=== PATIENT | male | born 1950 | race Caucasian/White ===

== ENCOUNTER 2017-12-25 08:55 | Emergency (ER) | payer MEDICARE, SELFPAY ==
[2017-12-25 09:15] VITALS: BP 139/82; PULSE 73; RESP 20; TEMP 36.2; O2SAT 96; BMI 35.2
[2017-12-25 09:22] LABS: POC Glucose,Bedside 98 mg/dL (70-110)
[2017-12-25 09:25] VITALS: BP 142/93; PULSE 65; RESP 18; TEMP 36.4; O2SAT 95; BMI 35.2
--- NOTE | 2017-12-25 09:38 | CT_ITS ---
CT head/brain wo con Ordering Physician: Caitlin Romeo Patient Age: 67 years: Male HISTORY: ITS.REASON: dizziness and vomiting.. On 2 weeks. HISTORY of trauma to head TECHNIQUE: Axial routine CT head with brain and bone windows performed and submitted to PACS COMPARISON :No CT head studies. Only CT sinus study from 2009 available FINDINGS No acute intracranial findings. No hemorrhage. No mass lesion or mass effect. No subdural collection. Small physiologic calcification at medial aspect right basal ganglia noted.. Ventricles appear normal size. Posterior fossa unremarkable. CP angles clear. IACs symmetric. Middle ear clear. Mastoid air cells unremarkable. Minimal cerumen right external canal. Focal area of benign-appearing focal right frontal bone of skull is seen on axial image 26.. Possibly reflects sequela of old fracture. No prior axial CT studies here for comparison however I suspect this area was present on the CT sinus placement coordinator image from 2009. Supporting stable character A benign appearance Is there history of old skull fracture Paranasal sinuses. Partially imaged maxillary sinuses reveal Retention cyst floor left maxillary sinus measuring up to 18 mm AP. Scant mucosal thickening lateral wall inferior left maxillary sinus. Ethmoid sphenoid and frontal sinuses clear. Orbits unremarkable. IMPRESSION: 1. No acute intracranial findings. Brain within normal limits for age on this noncontrast CT 2. Benign-appearing Focal thinning of skull right frontal bone most likely stable feature since 2009 . (Although not seen on previous axial CT sinus images, I suspect this minor feature stable on the CT placement coordinator view of skull from 2009 vs today).. Nonspecific observation but could reflect site of old trauma if history of skull fracture here . 3. No acute paranasal sinus nor mastoid features. . Moderate size retention cyst floor left maxillary sinus as noted.
[2017-12-25 09:41] LABS: Basophils # 0.1 K/mm3 (0-0.2); Basophils % 0.6 % (0.1-2.0); Eosinophils # 0.4 K/mm3 (0.0-0.4); Eosinophils % 4.8 % (0.1-12.0); Hematocrit 43.3 % (42.0-52.0); Lymphocytes # 3.2 K/mm3 (0.7-4.5); Lymphocytes % 35.2 K/mm3 (10-50); Mean Corpuscular HGB Conc 34.7 g/dL (31.8-35.4); Mean Corpuscular Hemoglobin 30.8 pg (27.0-31.2); Mean Corpuscular Volume 88.7 fl (80-94); Mean Platelet Volume 9.1 fl (7.4-10.4); Monocytes # 0.7 K/mm3 (0.1-1.0); Monocytes % 7.2 % (1.7-9.3); Neutrophils # 4.8 K/mm3 (1.8-7.8); Neutrophils % 52.2 % (37.0-80.0); Platelet Count 180 K/mm3 (142-424); Red Blood Count 4.88 M/mm3 (4.60-6.20); Red Cell Distribution Width 12.8 % (11.5-17.5); White Blood Count 9.2 K/mm3 (4.8-10.8)
--- NOTE | 2017-12-25 09:43 | [facility].EDGENADL ---
ED Disposition Clinical Impression: CAD (coronary artery disease), COPD (chronic obstructive pulmonary disease), Retention cyst of nasal cavity, Acute labyrinthitis, Seasonal allergies Clinical Impression: (Ruled Out): Pre-syncope Disposition: Home, Self-Care Condition on Discharge: Fair Additional Instructions: 1- fall precautions. 2- start zyrtec and antivert. 3- see Dr Block for a retention cyst. 4- see Dr. Chacon in AM to discuss MRI and Carotid US. 5- to return for re evaluation if new sx arise. Prescriptions: Meclizine HCl [Antivert 25mg tablet] 25 mg PO Q8HP PRN #21 tab PRN Reason: Dizziness Cetirizine HCl [Zyrtec] 10 mg PO Q24H #15 cap Referrals: Georges Chacon MD [Primary Care Provider] - Bill Block MD [Staff Physician] - - Critical Care Critical Care Time: No Attestation: On 12/25/17, the high probability of a clinically significant, sudden or life threatening deterioration of the following system(s) required my full and direct attention, intervention and personal management. The time I documented below is in addition to time spent performing reported procedures but includes the following listed in this critical care notation. Medical Decision Making - Medical Records Medical records reviewed: Yes: I reviewed the patient's medical records. Vital Signs: 12/25/17 09:15 12/25/17 09:25 12/25/17 10:00 Temperature 97.2 F L 97.5 F L Temperature Source Temporal Artery Scan Temporal Artery Scan Pulse Rate [Orthostatic Lying Left Radial] 67 Pulse Rate [Orthostatic Sitting Right Radial] 68 Pulse Rate [Orthostatic Standing Right Radial] 75 Pulse Rate [Right] 73 65 Respiratory Rate 20 18 Blood Pressure [Orthostatic Lying Right Arm] 134/94 Blood Pressure [Orthostatic Sitting Right Arm] 140/89 Blood Pressure [Orthostatic Standing Right Arm] 131/89 Blood Pressure [Right Arm] 139/82 142/93 Blood Pressure Mean [Right Arm] 101 109 Blood Pressure Source [Right Arm] Automatic Cuff Automatic Cuff Blood Pressure Position [Right Arm] Sitting Supine 02 Sat by Pulse Oximetry 96 95 Oxygen Delivery Method Room Air Room Air - Lab Data Lab results reviewed: Yes: I reviewed the patient's lab results. Lab Results 12/25/17 09:15: POC Glucose 98 12/25/17 09:34: WBC 9.2, RBC 4.88, Hgb 15.0, Hct 43.3, MCV 88.7, MCH 30.8, MCHC 34.7, RDW 12.8, Plt Count 180, MPV 9.1, Neut % (Auto) 52.2, Lymph % (Auto) 35.2, [place] % (Auto) 7.2, Eos % (Auto) 4.8, Baso % (Auto) 0.6, Neut # (Auto) 4.8, Lymph # (Auto) 3.2, [place] # (Auto) 0.7, Eos # (Auto) 0.4, Baso # (Auto) 0.1 12/25/17 09:34: Sodium 141, Potassium 4.2, Chloride 107, Carbon Dioxide 27, Anion Gap 11.2, BUN 16, Creatinine 1.07, Estimated Creat Clear 94, Estimated GFR 69, Est GFR ( Amer) 84, Glucose 105, Calcium 8.5, Total Bilirubin 0.6, AST 24, ALT 59, Alkaline Phosphatase 116, Total Creatine Kinase 92, CK-MB (CK-2) 0.9, CK-MB (CK-2) Rel Index 1.0, Troponin I < 0.02, Total Protein 6.7, Albumin 3.8, Globulin 2.9, Albumin/Globulin Ratio 1.3 12/25/17 09:34: D-Dimer < 100 12/25/17 09:34: B-Natriuretic Peptide 27 12/25/17 09:38: Specimen Source L. radial, O2 % Room air, ABG pH 7.41, ABG pCO2 36.9, ABG pO2 86.9, ABG HCO3 22.7, ABG Total CO2 23.8, ABG O2 Saturation 97, ABG Base Excess -2.0, Goyo Test Acceptable 12/25/17 09:40: Stool Occult Blood Negative Result diagrams: 12/25/17 09:34 12/25/17 09:34 Orders (Tests/Meds): ED MEDICATIONS Discontinued Medications Generic Name Dose Route Start Last Admin Trade Name Freq PRN Reason Stop Dose Admin Sodium Chloride 1,000 mls @ 999 mls/hr 12/25/17 10:15 12/25/17 10:37 Sod Chlor 0.9% 1000ml Bag IV 12/25/17 11:15 999 mls/hr .Q1H1M KASSY Administration Meclizine HCl 25 mg 12/25/17 10:10 12/25/17 10:37 Antivert 25mg Tablet PO 12/25/17 10:11 25 mg ONCE ONE Administration - Radiology Data #1 Image(s): Chest - CT Data CT Scan: Head Time Received: 11:28
--- NOTE | 2017-12-25 09:46 | ED_ITS ---
ED Disposition Clinical Impression: CAD (coronary artery disease), COPD (chronic obstructive pulmonary disease), Retention cyst of nasal cavity, Acute labyrinthitis, Seasonal allergies Clinical Impression: (Ruled Out): Pre-syncope Disposition: Home, Self-Care Condition on Discharge: Fair Additional Instructions: 1- fall precautions. 2- start zyrtec and antivert. 3- see Dr Block for a retention cyst. 4- see Dr. Chacon in AM to discuss MRI and Carotid US. 5- to return for re evaluation if new sx arise. Prescriptions: Meclizine HCl [Antivert 25mg tablet] 25 mg PO Q8HP PRN #21 tab PRN Reason: Dizziness Cetirizine HCl [Zyrtec] 10 mg PO Q24H #15 cap Referrals: Georges Chacon MD [Primary Care Provider] - Bill Block MD [Staff Physician] - - Critical Care Critical Care Time: No Attestation: On 12/25/17, the high probability of a clinically significant, sudden or life threatening deterioration of the following system(s) required my full and direct attention, intervention and personal management. The time I documented below is in addition to time spent performing reported procedures but includes the following listed in this critical care notation. Medical Decision Making - Medical Records Medical records reviewed: Yes: I reviewed the patient's medical records. Vital Signs: 12/25/17 09:15 12/25/17 09:25 12/25/17 10:00 Temperature 97.2 F L 97.5 F L Temperature Source Temporal Artery Scan Temporal Artery Scan Pulse Rate [Orthostatic Lying Left Radial] 67 Pulse Rate [Orthostatic Sitting Right Radial] 68 Pulse Rate [Orthostatic Standing Right Radial] 75 Pulse Rate [Right] 73 65 Respiratory Rate 20 18 Blood Pressure [Orthostatic Lying Right Arm] 134/94 Blood Pressure [Orthostatic Sitting Right Arm] 140/89 Blood Pressure [Orthostatic Standing Right Arm] 131/89 Blood Pressure [Right Arm] 139/82 142/93 Blood Pressure Mean [Right Arm] 101 109 Blood Pressure Source [Right Arm] Automatic Cuff Automatic Cuff Blood Pressure Position [Right Arm] Sitting Supine 02 Sat by Pulse Oximetry 96 95 Oxygen Delivery Method Room Air Room Air - Lab Data Lab results reviewed: Yes: I reviewed the patient's lab results. Lab Results 12/25/17 09:15: POC Glucose 98 12/25/17 09:34: WBC 9.2, RBC 4.88, Hgb 15.0, Hct 43.3, MCV 88.7, MCH 30.8, MCHC 34.7, RDW 12.8, Plt Count 180, MPV 9.1, Neut % (Auto) 52.2, Lymph % (Auto) 35.2 , [place] % (Auto) 7.2, Eos % (Auto) 4.8, Baso % (Auto) 0.6, Neut # (Auto) 4.8, Lymph # (Auto) 3.2, [place] # (Auto) 0.7, Eos # (Auto) 0.4, Baso # (Auto) 0.1 12/25/17 09:34: Sodium 141, Potassium 4.2, Chloride 107, Carbon Dioxide 27, Anion Gap 11.2, BUN 16, Creatinine 1.07, Estimated Creat Clear 94, Estimated GFR 69, Est GFR ( Amer) 84, Glucose 105, Calcium 8.5, Total Bilirubin 0.6 , AST 24, ALT 59, Alkaline Phosphatase 116, Total Creatine Kinase 92, CK-MB (CK- 2) 0.9, CK-MB (CK-2) Rel Index 1.0, Troponin I < 0.02, Total Protein 6.7, Albumin 3.8, Globulin 2.9, Albumin/Globulin Ratio 1.3 12/25/17 09:34: D-Dimer < 100 12/25/17 09:34: B-Natriuretic Peptide 27 12/25/17 09:38: Specimen Source L. radial, O2 % Room air, ABG pH 7.41, ABG pCO2 36.9, ABG pO2 86.9, ABG HCO3 22.7, ABG Total CO2 23.8, ABG O2 Saturation 97, ABG Base Excess -2.0, Goyo Test Acceptable 12/25/17 09:40: Stool Occult Blood Negative Result diagrams: 12/25/17 09:34 12/25/17 09:34 Orders (Tests/Meds):
[2017-12-25 09:50] LABS: ABG HCO3 22.7 mmhg (22.0-26.0); ABG Oxygen Saturation 97 % (90-100); ABG PCO2 36.9 mmhg (35.0-45.0); ABG PH 7.41 mmol/L (7.35-7.45); ABG PO2 86.9 mmhg (80-100); ABG TCO2 23.8 mmhg (23-27)
[2017-12-25 09:51] LABS: Allen's Test ACCEPTABLE; Oxygen ROOM AIR %; Source L. RADIAL
[2017-12-25 09:58] LABS: Occult Blood,Stool Negative (Negative)
[2017-12-25 10:00] VITALS: BP 131/89; BP 134/94; BP 140/89; PULSE 67; PULSE 68; PULSE 75
[2017-12-25 10:02] LABS: D-Dimer < 100 (0-400)
[2017-12-25 10:05] LABS: Alanine Aminotransferase 59 U/L (12-78); Albumin Level 3.8 gm/dL (3.4-5.0); Albumin/Globulin Ratio 1.3 (1.1-1.8); Alkaline Phosphatase 116 U/L (46-116); Anion Gap 11.2 mEq/L (5-15); Aspartate Amino Transferase 24 U/L (15-37); Bilirubin,Total 0.6 mg/dL (0.2-1.0); Blood Urea Nitrogen 16 mg/dL (7-18); Calcium 8.5 mg/dL (8.5-10.1); Carbon Dioxide 27 mmol/L (21.0-32.0); Chloride 107 mmol/L (98-107); Creatine Kinase 92 U/L (39-308); Creatine Kinase MB 0.9 mg/ml (0.0-3.6); Creatinine Clearance Estimated 94 mL/min (0-300); Creatinine,Serum 1.07 mg/dL (0.70-1.30); Estimated Glomerular Filt Rate 69 ml/min (>60); GFR (African American) 84 ML/MIN (>60); Globulin 2.9 gm/dl (1.3-3.2); Glucose 105 mg/dL (74-106); Potassium 4.2 mmoL/L (3.5-5.1); Sodium 141 mmol/L (136-145); Total Protein,Serum 6.7 gm/dL (6.4-8.2); Troponin I < 0.02 ng/ml (0.00-0.06)
[2017-12-25 11:45] VITALS: BP 136/90; PULSE 71; RESP 18; TEMP 36.6; O2SAT 96
== END 2017-12-25 11:46 | disposition home or self-care (01) ==
LOC: UTC 09:15 → ER 09:20
PROVIDERS: Nurse Practitioner; Emergency Provider Emergency Medicine; Family Provider Internal Medicine Adolescent Medicine; PCP Internal Medicine Adolescent Medicine
DX: J34.1 Cyst and mucocele of nose and nasal sinus (principal); H83.09 Labyrinthitis, unspecified ear; J30.2 Other seasonal allergic rhinitis; I25.10 Atherosclerotic heart disease of native coronary artery without angina pectoris; J44.9 Chronic obstructive pulmonary disease, unspecified; Z79.82 Long term (current) use of aspirin; Z88.0 Allergy status to penicillin; R06.02 Shortness of breath
CPT/HCPCS: 70450; 80053; 82272; 82550; 82553; 82803; 82962; 83880; 84484; 85025; 85378; 93005; 93041; 96365; 99284; G0328

== ENCOUNTER → 2018-01-31 10:35 | Outpatient (POV) | payer MEDICARE, SELFPAY | PROVIDERS: Family Provider Internal Medicine Adolescent Medicine; PCP Internal Medicine Adolescent Medicine; Visit Provider Internal Medicine | DX: Z00.00 Encounter for general adult medical examination without abnormal findings (principal) ==

== ENCOUNTER → 2018-03-24 10:58 | Outpatient (CLI) | payer MEDICARE, SELFPAY ==
[2018-03-24 12:34] LABS: Alanine Aminotransferase 51 U/L (12-78); Albumin Level 3.8 gm/dL (3.4-5.0); Albumin/Globulin Ratio 1.4 (1.1-1.8); Alkaline Phosphatase 114 U/L (46-116); Anion Gap 14.4 mEq/L (5-15); Aspartate Amino Transferase 28 U/L (15-37); Bilirubin,Total 0.6 mg/dL (0.2-1.0); Blood Urea Nitrogen 18 mg/dL (7-18); Calcium 9.3 mg/dL (8.5-10.1); Carbon Dioxide 25 mmol/L (21.0-32.0); Chloride 108 mmol/L (98-107); Chol/HDL Ratio 3.4 (1-3.5); Cholesterol 133 mg/dL (140-200); Creatinine,Serum 0.91 mg/dL (0.70-1.30); Estimated Glomerular Filt Rate 84 ml/min (>60); GFR (African American) 101 ML/MIN (>60); Globulin 2.7 gm/dl (1.3-3.2); Glucose 105 mg/dL (74-106); HDL Cholesterol 39 mg/dL (27-67); LDL Cholesterol 75 mg/dL (0-130); Potassium 4.4 mmoL/L (3.5-5.1); Sodium 143 mmol/L (136-145); Thyroid Stimulating Hormone 2.26 uIU/ml (0.358-3.740); Total Protein,Serum 6.5 gm/dL (6.4-8.2); Triglycerides 95 mg/dL (30-200); VLDL Cholesterol 19 mg/dL (0-40)
== END ==
PROVIDERS: Visit Provider Internal Medicine Adolescent Medicine
DX: E78.5 Hyperlipidemia, unspecified (principal); E03.9 Hypothyroidism, unspecified
CPT/HCPCS: 36415; 80053; 80061; 84443

== ENCOUNTER 2018-06-26 11:27 | Observation (INO) ==
[2018-06-26 12:40] LABS: Basophils # 0.1 K/mm3 (0-0.2); Basophils % 0.6 % (0.1-2.0); Eosinophils % 7.4 % (0.1-12.0); Hematocrit 46.8 % (42.0-52.0); Hemoglobin 15.6 g/dL (14.1-18.0); Lymphocytes # 3.8 K/mm3 (0.7-4.5); Lymphocytes % 26.9 K/mm3 (10-50); Mean Corpuscular HGB Conc 33.4 g/dL (31.8-35.4); Mean Corpuscular Hemoglobin 29.6 pg (27.0-31.2); Mean Corpuscular Volume 88.6 fl (80-94); Mean Platelet Volume 8.5 fl (7.4-10.4); Monocytes % 7.4 % (1.7-9.3); Neutrophils # 8.1 K/mm3 (1.8-7.8); Neutrophils % 57.6 % (37.0-80.0); Platelet Count 180 K/mm3 (142-424); Red Blood Count 5.29 M/mm3 (4.60-6.20)
--- NOTE | 2018-06-26 12:48 | Pharmacy Consult Notes ---
[facility] Pharmacy VTE Monitoring - Patient Demographics Admission date: 06/26/18 Report Date: 06/26/18 Time: 12:47 Allergies/Adverse Reactions: Patient Allergies erythromycin base Allergy (Intermediate, Verified 12/25/17 09:20) I-RASH penicillin G Allergy (Intermediate, Verified 12/25/17 09:19) I-RASH Height: 1.65 m Weight: 211.3 kg - VTE Risk Labs: VTE Related Lab Results Hgb 15.6 g/dL (14.1-18.0) 06/26/18 12:23 Hct 46.8 % (42.0-52.0) 06/26/18 12:23 Plt Count 180 K/mm3 (142-424) 06/26/18 12:23 Was VTE Risk Assessment Performed: Yes VTE Score: 4 VTE Risk Level: Low Risk - Prophylaxis VTE Prophylaxis Ordered?: Yes Types of VTE Prophylaxis: TEDS Knee High Location of Applied Device: Bilateral Lower Extremeties
[2018-06-26 12:54] LABS: Anion Gap 13.3 mEq/L (5-15); Potassium 4.3 mmoL/L (3.5-5.1)
--- NOTE | 2018-06-26 13:39 | History & Physical Report ---
*Admission Date: 06/26/18 *Chief complaint: Cough and shortness of air *History of present illness: 67-year-old white male with asthma/COPD who over the past couple of weeks has been treated for an exacerbation of COPD with wheezing and coughing and shortness of air, had been treated with doxycycline as an outpatient which had improved his situation, had also received a dose of ceftriaxone intramuscularly along with Solu-Medrol intramuscularly. Had initially felt better before the weekend but today came into my office coughing and congested, stated that he felt worse, found to have crackles in his right middle and lower lung field, admitted to hospital for failure of outpatient therapy. [facility] History I have reviewed the patient's past medical history: Yes Medical History: Reports:: Asthma, Atherosclerotic Heart Disease, Myocardial Infarction Denies:: Cancer, Diabetes Mellitus Type 1, Diabetes Mellitus Type 2, MRSA Other Medical History: Reports: Thyroid Disease Other Surgeries: Yes: Cardiac Catheterization, Cholecystectomy, Hernia Repair, Other (PLATE IN HEAD.) Amputation: No Fractures: No - *Social History Educational Level: Completed High School Alcohol Intake: never Substance Use Type: denies use Occupational Status: retired Housing: house Household Members: spouse - Psychiatric History Expresses thoughts of harming self/others: None Suicide Plan Description: No Plan *Family Hx:: Asthma, Heart Attack, Hyperlipidemia, Hypertension, Thyroid Disorder Review of Systems - Review of Systems Review of systems:: pertinent systems reviewed and negative unless documented below - Constitutional Reports fatigue, Reports fever(s), Reports lack of energy, Denies anorexia, Denies body ache(s), Denies chills - Eyes Denies blind spots, Denies blurry vision, Denies floaters - ENT Denies abnormal hearing, Denies bleeding gums, Denies poor balance, Denies dry mouth - *Cardiovascular Reports shortness of breath, Reports shortness of breath with activity, Denies chest pain, Denies chest pain at rest, Denies excessive sweating, Denies generalized swelling, Denies irregular heart rhythm, Denies leg swelling - *Respiratory Reports change in phlegm color, Reports chest congestion, Reports cough, Reports shortness of breath, Reports shortness of breath with activity, Reports excessive phlegm production, Denies coughing up blood - *Gastrointestinal Denies abdominal pain, Denies belching, Denies bloating, Denies change in stools , Denies coffee ground vomit - *Genitourinary Denies difficulty urinating, Denies blood in urine, Denies decreased urination - *Musculoskeletal Denies abnormal walking, Denies joint pain, Denies decreased muscle mass, Denies deformity, Denies joint swelling - Integumentary/Breasts Denies change in skin color, Denies changing lesions - *Neurologic Denies abnormal walking, Denies abnormal hearing, Denies abnormal speech, Denies behavioral changes - Endocrine Denies cold intolerance, Denies excessive sweating Meds Home Medications Medication Instructions Recorded Confirmed Type Aspirin 81 mg PO DAILY 12/25/17 06/26/18 History Atorvastatin Calcium [Lipitor 80mg 80 mg PO HS 12/25/17 06/26/18 History Tablet] Beclomethasone Dipropionate [Qvar 10.6 gm IH DAILY 12/25/17 06/26/18 History Redihaler] Carvedilol [Carvedilol 6.25mg Tab] 6.25 mg PO DAILY 12/25/17 06/26/18 History Levocetirizine Dihydrochloride 5 mg PO DAILY 12/25/17 06/26/18 History Levothyroxine Sodium 50 mcg PO DAILY 12/25/17 06/26/18 History [Levothyroxine 50mcg (0.05mg) Tab] Pantoprazole Sodium [Protonix 40mg 40 mg PO BID 12/25/17 06/26/18 History tablet] buPROPion HCl [Bupropion Xl] 300 mg PO BID 12/25/17 06/26/18 History raNITIdine HCl [Ranitidine HCl] 150 mg PO DAILY 12/25/17 06/26/18 History Cetirizine HCl [Zyrtec] 10 mg PO Q24H 06/26/18 06/26/18 History Allergies Allergy/AdvReac Type Severity Reaction Status Date / Time erythromycin base Allergy Intermediate I-RASH Verified 12/25/17 09:20 penicillin G Allergy Intermediate I-RASH Verified 12/25/17 09:19 Exam Vital signs and Labs for Last 24 Hours: Temp Pulse Resp BP Pulse Ox 98.2 F 85 22 138/70 96 06/26/18 11:49 06/26/18 13:02 06/26/18 11:49 06/26/18 11:49 06/26/18 13:02 Laboratory Results - last 24 hr 06/26/18 12:23: C-Reactive Protein 0.2 06/26/18 12:23: WBC 14.0 H, RBC 5.29, Hgb 15.6, Hct 46.8, MCV 88.6, MCH 29.6, MCHC 33.4, RDW 13.0, Plt Count 180, MPV 8.5, Neut % (Auto) 57.6, Lymph % (Auto) 26.9, [place] % (Auto) 7.4, Eos % (Auto) 7.4, Baso % (Auto) 0.6, Neut # (Auto) 8.1 H, Lymph # (Auto) 3.8, [place] # (Auto) 1.0, Eos # (Auto) 1.0 H, Baso # (Auto) 0.1 06/26/18 12:23: Sodium 141, Potassium 4.3, Chloride 106, Carbon Dioxide 26, Anion Gap 13.3, BUN 19 H, Creatinine 1.05, Estimated Creat Clear 61, Estimated GFR 71, Est GFR ( Amer) 86, Glucose 95, Calcium 9.0 I & O for Last 24 hours: Intake & Output 06/24/18 06/25/18 06/26/18 06/27/18 11:59 11:59 11:59 11:59 Intake Total 240 / 240 Balance 240 / 240 Weight 465 lb 13.388 oz 465 lb 13.388 oz Narrative: Patient is awake. Alert, oriented 3. Oropharynx moist, tympanic membranes clear, no JVD, otherwise ENT exam unremarkable Lungs have crackles and rhonchi in the lower and middle lung field on the right side. Left side clear. No edema noted. No clubbing. Abdomen soft and nontender. Heart rate regular without murmurs. No cranial nerve deficits noted, good power in all extremities. Assessment and Plan (1) Lobar pneumonia Current visit: Yes Status: Acute Category: Medical Code(s): J18.1 - Lobar pneumonia, unspecified organism Admit to hospital after failed doxycycline therapy. Intravenous ceftriaxone and azithromycin. Sputum and blood cultures. (2) COPD with exacerbation Current visit: Yes Status: Acute Category: Medical Code(s): J44.1 - Chronic obstructive pulmonary disease with (acute) exacerbation Intravenous Solu-Medrol, pulmonary toilet.
--- NOTE | 2018-06-27 08:34 | Discharge Summary ---
General - General Admission date:: 06/26/18 Discharge date: 06/27/18 HPI HPI: 67-year-old white male with asthma/COPD who over the past couple of weeks has been treated for an exacerbation of COPD with wheezing and coughing and shortness of air, had been treated with doxycycline as an outpatient which had improved his situation, had also received a dose of ceftriaxone intramuscularly along with Solu-Medrol intramuscularly. Had initially felt better before the weekend but today came into my office coughing and congested, stated that he felt worse, found to have crackles in his right middle and lower lung field, admitted to hospital for failure of outpatient therapy. Hospital Course Hospital Course: Patient admitted for medical management of COPD exacerbation versus pneumonia. Initiated on antibiotics, steroids, nebulizer treatments. Required no supplemental oxygen. Maintained stable vitals and oxygen saturations. Transitioned to oral therapy with Omnicef and azithromycin to complete 7 days of Omnicef, 5 days of Azith. Oral steroids for 7 days. Plan to continue inhaled LABA/LAMA combo with initiation of home nebulizer treatments as well. Objective Vital signs: Temp Pulse Resp BP Pulse Ox 97.2 F L 95 H 18 133/83 96 06/27/18 07:56 06/27/18 07:56 06/27/18 07:56 06/27/18 07:56 06/27/18 07:56 - *Routine HEENT Exam Head: Present: normocephalic, atraumatic Eye: Present: EOMI, PERRL ENT: Present: mucous membranes moist, nares patent - *Routine Neck Exam Present: supple, full ROM. Absent: JVD, thyromegaly - *Routine Respiratory Exam Present: prolonged expiratory phase, wheezes (Diffuse bilaterally). Absent: accessory muscle use, CTA bilaterally, rales, respiratory distress, crackles - *Routine Cardiovascular Exam Present: RRR, Normal S1, Normal S2. Absent: murmur - *Routine Abdominal Exam Present: soft, normoactive bowel sounds. Absent: tenderness - *Routine Rectal Exam Patient deferred: visual exam - *Routine Exam Patient deferred: penile exam - *Routine Extremities Exam Absent: cyanosis, clubbing, edema - *Routine Skin Exam Present: intact. Absent: cyanosis - *Routine Neurological Exam Present: alert, oriented X3, CN II-XII intact - Routine Psychiatric Exam Present: normal affect, cooperative Results Labs on day of discharge: Labs from last 24 hours 06/26/18 06/26/18 06/26/18 12:23 12:23 12:23 WBC 14.0 H RBC 5.29 Hgb 15.6 Hct 46.8 MCV 88.6 MCH 29.6 MCHC 33.4 RDW 13.0 Plt Count 180 MPV 8.5 Neut % (Auto) 57.6 Lymph % (Auto) 26.9 [place] % (Auto) 7.4 Eos % (Auto) 7.4 Baso % (Auto) 0.6 Neut # (Auto) 8.1 H Lymph # (Auto) 3.8 [place] # (Auto) 1.0 Eos # (Auto) 1.0 H Baso # (Auto) 0.1 Sodium 141 Potassium 4.3 Chloride 106 Carbon Dioxide 26 Anion Gap 13.3 BUN 19 H Creatinine 1.05 Estimated Creat Clear 61 Estimated GFR 71 Est GFR ( Amer) 86 Glucose 95 Calcium 9.0 C-Reactive Protein Mycoplasma pneumon IgM Non-reactive 06/26/18 12:23 WBC RBC Hgb Hct MCV MCH MCHC RDW Plt Count MPV Neut % (Auto) Lymph % (Auto) [place] % (Auto) Eos % (Auto) Baso % (Auto) Neut # (Auto) Lymph # (Auto) [place] # (Auto) Eos # (Auto) Baso # (Auto) Sodium Potassium Chloride Carbon Dioxide Anion Gap BUN Creatinine Estimated Creat Clear Estimated GFR Est GFR ( Amer) Glucose Calcium C-Reactive Protein 0.2 Mycoplasma pneumon IgM Preliminary micro results at discharge 06/26/18 16:05 Sputum Culture - Preliminary Sputum - Expectorated Sputum DS: Diagnosis - Discharge Diagnosis (1) Lobar pneumonia Status: Acute (2) COPD with exacerbation Status: Acute Discharge Plan - Patient Discharge Instructions ACTIVITY: Continue current activity DIET: continue same diet Patient Instructions: Pneumonia-Adult - Follow up Plan Follow up with: Georges Chacon MD [Primary Care Provider] - Unknown provider or service follow up:: 06/27/18 08:41 Pulmonary rehab with [facility] PT Disposition: Home, Self-Alf Medications: Home Medications Medication Instructions Recorded Confirmed Type Aspirin 81 mg PO DAILY 12/25/17 06/26/18 History Atorvastatin Calcium [Lipitor 80mg 80 mg PO HS 12/25/17 06/26/18 History Tablet] Carvedilol [Carvedilol 6.25mg Tab] 6.25 mg PO BID 12/25/17 06/26/18 History Levocetirizine Dihydrochloride 5 mg PO HS 12/25/17 06/26/18 History Levothyroxine Sodium 50 mcg PO DAILY 12/25/17 06/26/18 History [Levothyroxine 50mcg (0.05mg) Tab] Pantoprazole Sodium [Protonix 40mg 40 mg PO HS 12/25/17 06/26/18 History tablet] raNITIdine HCl [Ranitidine HCl] 150 mg PO DAILY 12/25/17 06/26/18 History Albuterol Sulfate [Albuterol HFA 1 - 2 puffs IH Q4-6H PRN 06/26/18 06/26/18 History Inhaler] Tiotropium Br/Olodaterol HCl 2 puffs IH DAILY 06/26/18 06/26/18 History [Stiolto Respimat Inhal [place]] buPROPion HCl [Bupropion HCl Sr] 100 mg PO BID 06/26/18 06/26/18 History Prescriptions/Medication Reconciliation: New buPROPion HCl [Wellbutrin SR 150mg Tablet] 300 mg PO DAILY tablet Cefdinir [Omnicef 300mg Capsule] 300 mg PO BID 6 Days #11 cap Azithromycin [Zithromax 250mg tab] 250 mg PO DAILY 3 Days #3 tab Continue Pantoprazole Sodium [Protonix 40mg tablet] 40 mg PO HS Levothyroxine Sodium [Levothyroxine 50mcg (0.05mg) Tab] 50 mcg PO DAILY Carvedilol [Carvedilol 6.25mg Tab] 6.25 mg PO BID raNITIdine HCl [Ranitidine HCl] 150 mg PO DAILY Levocetirizine Dihydrochloride 5 mg PO HS Atorvastatin Calcium [Lipitor 80mg Tablet] 80 mg PO HS Aspirin 81 mg PO DAILY Albuterol Sulfate [Albuterol HFA Inhaler] 1 - 2 puffs IH Q4-6H PRN PRN Reason: Shortness Of Breath Or Wheezing Tiotropium Br/Olodaterol HCl [Stiolto Respimat Inhal [place]] 2 puffs IH DAILY Discontinued buPROPion HCl [Bupropion HCl Sr] 100 mg PO BID
== END 2018-06-27 11:44 | disposition home or self-care (01) ==
LOC: 2ND → OBSVTOIN 11:27 → INTOOBSV 11:27
PROVIDERS: ADMIT Internal Medicine Adolescent Medicine; ATTEND Internal Medicine Adolescent Medicine

== ENCOUNTER 2018-07-05 10:39 | Inpatient (IN) ==
[2018-07-05 16:32] LABS: Basophils # 0.1 K/mm3 (0-0.2); Basophils % 0.8 % (0.1-2.0); Eosinophils # 1.2 K/mm3 (0.0-0.4); Eosinophils % 12.5 % (0.1-12.0); Hematocrit 45.7 % (42.0-52.0); Hemoglobin 15.6 g/dL (14.1-18.0); Lymphocytes # 2.2 K/mm3 (0.7-4.5); Lymphocytes % 23.9 K/mm3 (10-50); Mean Corpuscular HGB Conc 34.1 g/dL (31.8-35.4); Mean Corpuscular Hemoglobin 29.9 pg (27.0-31.2); Mean Corpuscular Volume 87.7 fl (80-94); Mean Platelet Volume 8.1 fl (7.4-10.4); Monocytes # 0.7 K/mm3 (0.1-1.0); Monocytes % 7.4 % (1.7-9.3); Neutrophils # 5.2 K/mm3 (1.8-7.8); Neutrophils % 55.5 % (37.0-80.0); Platelet Count 212 K/mm3 (142-424); Red Blood Count 5.21 M/mm3 (4.60-6.20); Red Cell Distribution Width 12.8 % (11.5-17.5); White Blood Count 9.4 K/mm3 (4.8-10.8)
[2018-07-05 16:53] LABS: Albumin Level 3.7 gm/dL (3.4-5.0); Albumin/Globulin Ratio 1.1 (1.1-1.8); Anion Gap 12.1 mEq/L (5-15); Bilirubin,Total 0.6 mg/dL (0.2-1.0); C-Reactive Protein 0.3 mg/L (0.0-0.9); Globulin 3.4 gm/dl (1.3-3.2); Potassium 4.1 mmoL/L (3.5-5.1); Total Protein,Serum 7.1 gm/dL (6.4-8.2)
--- NOTE | 2018-07-05 17:24 | History & Physical Report ---
*Admission Date: 07/05/18 *Chief complaint: Wheezing and shortness of air *History of present illness: 67-year-old white male with history of hypertension, history of pulmonary granulomatosis and COPD who over the past 6 weeks has had progressive problems with dyspnea and wheezing. I seen him in the office a couple of times when these symptoms began and he was treated with p.o. antibiotics with doxycycline and then with cephalosporins. 2 weeks ago he was admitted overnight with intravenous antibiotics and steroids and improved and was discharged home. Pulmonary function testing was scheduled for today but patient was extremely wheezy and short of air when he arrived for pulmonary function test and was sent to my office where he was found to be dyspneic, wheezing, relatively low oxygen saturations and crackles in both bases. Admitted to hospital for aggressive antibiotic therapy given his failure of multiple antibiotics, IV steroids and increased pulmonary toilet. [facility] History Medical History: Reports:: Asthma, Atherosclerotic Heart Disease, Chronic Ob structive Pulmonary Disease (COPD), Coronary Artery Disease, Hyperlipidemia, Myocardial Infarction Denies:: Cancer, Diabetes Mellitus Type 1, Diabetes Mellitus Type 2, MRSA Other Medical History: Reports: Arthritis, Hypothyroidism, Thyroid Disease Comment: History of pulmonary granulomatosis, possibly from toluene exposure. History of bird exposures before 2005 with cockatoos. Currently has 1 dog at home Other Surgeries: Yes: Cardiac Catheterization, Cholecystectomy, Colonoscopy, EGD, Hernia Repair, Other (PLATE IN HEAD.) Amputation: No Fractures: No - *Social History Educational Level: Completed High School Smoking Status: Never smoker Alcohol Intake: former Alcohol Intake Frequency:: other Substance Use Type: denies use Occupational Status: retired Housing: house Household Members: spouse - Psychiatric History Expresses thoughts of harming self/others: None Suicide Plan Description: No Plan *Family Hx:: Asthma, Heart Attack, Hyperlipidemia, Hypertension, Thyroid Disorder Review of Systems - Review of Systems Review of systems:: pertinent systems reviewed and negative unless documented below - Constitutional Reports fatigue, Reports lack of energy, Reports malaise, Reports weakness, Denies anorexia, Denies body ache(s), Denies chills, Denies fever(s) - Eyes Denies blind spots, Denies blurry vision, Denies change in vision - ENT Denies bleeding gums, Denies change in voice, Denies difficulty swallowing - *Cardiovascular Reports shortness of breath, Denies chest pain, Denies chest pain with activity, Denies leg pain with activity, Denies excessive sweating, Denies irregular heart rhythm, Denies leg swelling, Denies leg sores - *Respiratory Reports change in phlegm color, Reports chest congestion, Reports cough, Reports shortness of breath, Reports excessive phlegm production, Reports wheezing, Denies shortness of breath with activity, Denies coughing up blood, Denies pain with cough, Denies snoring, Denies stridor - *Gastrointestinal Denies abdominal pain, Denies belching, Denies change in bowel habits, Denies coffee ground vomit, Denies cramping, Denies difficulty swallowing - *Genitourinary Denies difficulty urinating - *Musculoskeletal Denies abnormal walking, Denies joint pain, Denies decreased muscle mass - Integumentary/Breasts Denies acne, Denies hair loss, Denies change in skin color, Denies changing lesions - *Neurologic Denies abnormal walking, Denies behavioral changes, Denies confusion, Denies seizure-like activity, Denies unsteadiness, Denies lack of coordination, Denies loss of vision - Endocrine Denies cold intolerance, Denies excessive sweating, Denies rapid, pounding, or irregular heartbeat - Hematologic/Lymphatic Denies easy bleeding, Denies easy bruising - Allergic/Immunologic Denies GI upset with certain foods Meds Home Medications Medication Instructions Recorded Confirmed Type Aspirin 81 mg PO DAILY 12/25/17 07/05/18 History Atorvastatin Calcium [Lipitor 80mg 80 mg PO HS 12/25/17 07/05/18 History Tablet] Carvedilol [Carvedilol 6.25mg Tab] 6.25 mg PO BID 12/25/17 07/05/18 History Levocetirizine Dihydrochloride 5 mg PO HS 12/25/17 07/05/18 History Levothyroxine Sodium 50 mcg PO DAILY 12/25/17 07/05/18 History [Levothyroxine 50mcg (0.05mg) Tab] Pantoprazole Sodium [Protonix 40mg 40 mg PO HS 12/25/17 07/05/18 History tablet] raNITIdine HCl [Ranitidine HCl] 150 mg PO DAILY 12/25/17 07/05/18 History Albuterol Sulfate [Albuterol HFA 1 - 2 puffs IH Q4-6H PRN 06/26/18 07/05/18 History Inhaler] Tiotropium Br/Olodaterol HCl 2 puffs IH DAILY 06/26/18 07/05/18 History [Stiolto Respimat Inhal [place]] buPROPion HCl [Bupropion HCl Sr] 100 mg PO BID 06/26/18 07/05/18 History Allergies Allergy/AdvReac Type Severity Reaction Status Date / Time erythromycin base Allergy Intermediate I-RASH Verified 07/05/18 16:13 penicillin G Allergy Intermediate I-RASH Verified 07/05/18 16:13 Exam Vital signs and Labs for Last 24 Hours: Temp Pulse Resp BP Pulse Ox 98.8 F 76 24 149/92 92 L 07/05/18 16:09 07/05/18 16:42 07/05/18 17:08 07/05/18 16:09 07/05/18 16:42 Laboratory Results - last 24 hr 07/05/18 16:20: WBC 9.4, RBC 5.21, Hgb 15.6, Hct 45.7, MCV 87.7, MCH 29.9, MCHC 34.1, RDW 12.8, Plt Count 212, MPV 8.1, Neut % (Auto) 55.5, Lymph % (Auto) 23.9, [place] % (Auto) 7.4, Eos % (Auto) 12.5 H, Baso % (Auto) 0.8, Neut # (Auto) 5.2, Lymph # (Auto) 2.2, [place] # (Auto) 0.7, Eos # (Auto) 1.2 H, Baso # (Auto) 0.1 07/05/18 16:20: Sodium 141, Potassium 4.1, Chloride 105, Carbon Dioxide 28, Anion Gap 12.1, BUN 17, Creatinine 1.07, Estimated Creat Clear 93, Estimated GFR 69, Est GFR ( Amer) 84, Glucose 160 H, Calcium 9.0, Total Bilirubin 0.6, AST 31, ALT 55, Alkaline Phosphatase 118 H, C-Reactive Protein 0.3, Total Protein 7.1, Albumin 3.7, Globulin 3.4 H, Albumin/Globulin Ratio 1.1 07/05/18 16:20: Mycoplasma pneumon IgM Non-reactive I & O for Last 24 hours: Intake & Output 07/03/18 07/04/18 07/05/18 07/06/18 11:59 11:59 11:59 11:59 Weight 209 lb 8 oz Narrative: Patient is alert, oriented 3. Slightly tachycardic. Pulse oximetry readings on room air noted to be in the low 90s. Oropharynx clear, moist, no lesions. Tympanic membranes clear. No JVD. Wheezing and rhonchi and crackles in all lung [place]. Symmetric air movement noted. Heart rate regular with murmurs, difficult exam because of wheezing. Abdomen soft and nontender. No clubbing or cyanosis, no peripheral edema. Cranial nerves intact. Weak diffusely but no focal peripheral deficits of strength or sensations. Assessment and Plan (1) Wheezing Current visit: Yes Status: Acute Category: Medical Code(s): R06.2 - Wheezing Dramatically worsened over the past week or so. Admit to hospital, IV Solu-Medrol, nebulizer treatments. Pulmonary toilet. (2) Acute respiratory failure Current visit: Yes Status: Acute Category: Medical Code(s): J96.00 - Acute respiratory failure, unspecified whether with hypoxia or hypercapnia Check ABG. Close observation hospital on oxygen. (3) COPD with exacerbation Current visit: No Status: Acute Category: Medical Code(s): J44.1 - Chronic obstructive pulmonary disease with (acute) exacerbation Pseudomonas coverage given failed typical outpatient therapy. Culture blood and sputum.
[2018-07-05 18:37] LABS: ABG Base Excess 0.5 mmol/L (-2.4-2.3); ABG HCO3 25.2 mmhg (22.0-26.0); ABG Oxygen Saturation 98 % (90-100); ABG PCO2 40.6 mmhg (35.0-45.0); ABG PH 7.41 mmol/L (7.35-7.45); ABG PO2 102.4 mmhg (80-100); ABG TCO2 26.4 mmhg (23-27)
[2018-07-05 18:40] LABS: Allen's Test Acceptable; Oxygen 26 %
[2018-07-06 06:52] LABS: Basophils % 0.2 % (0.1-2.0); Eosinophils % 0.1 % (0.1-12.0); Hemoglobin 15.4 g/dL (14.1-18.0); Lymphocytes # 1.4 K/mm3 (0.7-4.5); Lymphocytes % 12.9 K/mm3 (10-50); Mean Corpuscular HGB Conc 32.8 g/dL (31.8-35.4); Mean Corpuscular Hemoglobin 29.3 pg (27.0-31.2); Mean Corpuscular Volume 89.1 fl (80-94); Mean Platelet Volume 8.8 fl (7.4-10.4); Monocytes # 0.2 K/mm3 (0.1-1.0); Monocytes % 1.4 % (1.7-9.3); Neutrophils % 85.3 % (37.0-80.0); Platelet Count 208 K/mm3 (142-424); Red Blood Count 5.27 M/mm3 (4.60-6.20); Red Cell Distribution Width 12.5 % (11.5-17.5); White Blood Count 10.6 K/mm3 (4.8-10.8)
[2018-07-06 07:00] LABS: Albumin Level 3.5 gm/dL (3.4-5.0); Anion Gap 12.5 mEq/L (5-15); Bilirubin,Total 0.6 mg/dL (0.2-1.0); Calcium 9.2 mg/dL (8.5-10.1); Globulin 3.4 gm/dl (1.3-3.2); Potassium 4.5 mmoL/L (3.5-5.1); Total Protein,Serum 6.9 gm/dL (6.4-8.2)
--- NOTE | 2018-07-06 07:42 | Pharmacy Consult Notes ---
[facility] Pharmacy VTE Monitoring - Patient Demographics Admission date: 07/05/18 Report Date: 07/06/18 Time: 07:41 Allergies/Adverse Reactions: Patient Allergies erythromycin base Allergy (Intermediate, Verified 07/05/18 16:13) I-RASH penicillin G Allergy (Intermediate, Verified 07/05/18 16:13) I-RASH Height: 1.65 m Weight: 95.028 kg Patient Problems: Current Active Problems Wheezing (Acute) Acute respiratory failure (Acute) - VTE Risk Labs: VTE Related Lab Results Hgb 15.4 g/dL (14.1-18.0) 07/06/18 06:21 Hct 47.0 % (42.0-52.0) 07/06/18 06:21 Plt Count 208 K/mm3 (142-424) 07/06/18 06:21 BUN 19 mg/dL (7-18) H 07/06/18 06:21 Creatinine 1.10 mg/dL (0.70-1.30) 07/06/18 06:21 Estimated Creat Clear 90 mL/min (0-300) 07/06/18 06:21 Was VTE Risk Assessment Performed: Yes VTE Risk Level: Low Risk - Prophylaxis VTE Prophylaxis Ordered?: Yes Types of VTE Prophylaxis: TEDS Knee High Location of Applied Device: Bilateral Lower Extremeties - VTE Diagnosis Confirmed Treatment or plan recommended: Continue Current Treatment
--- NOTE | 2018-07-06 09:05 | Progress Note ---
Addendum entered and electronically signed by Shaye Shields APRN 07/06/18 09:26: BMI 34.9 h/o hyperlipidemia Original Note: Internal Medicine - PN: Subj *Date: 07/06/18 *Time: 08:00 Interval history: Patient is sitting up in bed, reports shortness of breath is better with morphine. He has not been able to produce a sputum for culture. Alert and oriented x3. Rate and rhythm regular. No edema. Lung sounds with scattered wheezes and loose rhonchi, crackles bilateral bases. Abdomen soft, nontender. No neuro deficits. Exam Vital signs and Labs for Last 24 Hours: Temp Pulse Resp BP Pulse Ox 98.1 F 112 H 20 165/95 96 07/06/18 08:00 07/06/18 08:00 07/06/18 08:00 07/06/18 08:00 07/06/18 08:00 Laboratory Results - last 24 hr 07/05/18 16:20: WBC 9.4, RBC 5.21, Hgb 15.6, Hct 45.7, MCV 87.7, MCH 29.9, MCHC 34.1, RDW 12.8, Plt Count 212, MPV 8.1, Neut % (Auto) 55.5, Lymph % (Auto) 23.9, [place] % (Auto) 7.4, Eos % (Auto) 12.5 H, Baso % (Auto) 0.8, Neut # (Auto) 5.2, Lymph # (Auto) 2.2, [place] # (Auto) 0.7, Eos # (Auto) 1.2 H, Baso # (Auto) 0.1 07/05/18 16:20: Sodium 141, Potassium 4.1, Chloride 105, Carbon Dioxide 28, Anion Gap 12.1, BUN 17, Creatinine 1.07, Estimated Creat Clear 93, Estimated GFR 69, Est GFR ( Amer) 84, Glucose 160 H, Calcium 9.0, Total Bilirubin 0.6, AST 31, ALT 55, Alkaline Phosphatase 118 H, C-Reactive Protein 0.3, Total Protein 7.1, Albumin 3.7, Globulin 3.4 H, Albumin/Globulin Ratio 1.1 07/05/18 16:20: Mycoplasma pneumon IgM Non-reactive 07/05/18 16:22: Specimen Source Rt radial, O2 % 26, ABG pH 7.41, ABG pCO2 40.6, ABG pO2 102.4 H, ABG HCO3 25.2, ABG Total CO2 26.4, ABG O2 Saturation 98, ABG Base Excess 0.5, [place] Test Acceptable 07/06/18 06:21: WBC 10.6, RBC 5.27, Hgb 15.4, Hct 47.0, MCV 89.1, MCH 29.3, MCHC 32.8, RDW 12.5, Plt Count 208, MPV 8.8, Neut % (Auto) 85.3 H, Lymph % (Auto) 12.9, [place] % (Auto) 1.4 L, Eos % (Auto) 0.1, Baso % (Auto) 0.2, Neut # (Auto) 9.0 H, Lymph # (Auto) 1.4, [place] # (Auto) 0.2, Eos # (Auto) 0.0, Baso # (Auto) 0.0 07/06/18 06:21: Sodium 140, Potassium 4.5, Chloride 106, Carbon Dioxide 26, Anion Gap 12.5, BUN 19 H, Creatinine 1.10, Estimated Creat Clear 90, Estimated GFR 67, Est GFR ( Amer) 81, Glucose 163 H, Calcium 9.2, Total Bilirubin 0.6, AST 23 D, ALT 50, Alkaline Phosphatase 111, Total Protein 6.9, Albumin 3.5, Globulin 3.4 H, Albumin/Globulin Ratio 1.0 L I & O for Last 24 hours: Intake & Output 07/03/18 07/04/18 07/05/18 07/06/18 11:59 11:59 11:59 11:59 Intake Total 1475 / 1475 Balance 1475 / 1475 Weight 209 lb 8 oz Assessment and Plan (1) Wheezing Current visit: Yes Status: Acute Category: Medical Code(s): R06.2 - Wheezing (2) Acute respiratory failure Current visit: Yes Status: Acute Category: Medical Code(s): J96.00 - Acute respiratory failure, unspecified whether with hypoxia or hypercapnia (3) COPD with exacerbation Current visit: No Status: Acute Category: Medical Code(s): J44.1 - Chronic obstructive pulmonary disease with (acute) exacerbation - Assessment and plan all Dx Assessment and Plan for all problems:: Lung exam is improved. RT to induce sputum today for culture. Will obtain upper resp PCR to evaluate for viral etiology.
[2018-07-06 09:41] LABS: Coronavirus 229E Not Detected (NotDetected); Coronavirus NL63 Not Detected (NotDetected); Coronavirus OC43 Not Detected (NotDetected); Coronovirus HKU1,PCR Not Detected (NotDetected)
[2018-07-06 12:44] LABS: Lymphocytes % 10 % (10-50); Neutrophils % 90 % (42-76); RBC Morphology Normal; Total Cells Counted 100
--- NOTE | 2018-07-07 07:39 | Progress Note ---
Internal Medicine - PN: Subj *Date: 07/07/18 *Time: 07:38 Interval history: Patient continues to have some shortness of air. Has been coughing up some yellow/green sputum. On exam ENT exam is clear. No thrush. Moist mucosa. Heart rate regular. Lungs with rhonchi and minimal expiratory wheezing but vastly improved over yesterday's exam. Continues to cough yellow sputum. Exam Vital signs and Labs for Last 24 Hours: Temp Pulse Resp BP Pulse Ox 98.2 F 88 16 132/72 95 07/07/18 04:00 07/07/18 06:24 07/07/18 04:00 07/07/18 04:00 07/07/18 06:24 Laboratory Results - last 24 hr 07/06/18 06:21: Total Counted 100, Neutrophils % (Manual) 90 H, Lymphocytes % (Manual) 10, Platelet Estimate Normal, RBC Morphology Normal 07/06/18 09:40: Chlamy pneumoniae PCR Not detected, Adenovirus (PCR) Not detected, B.parapertussis DNA PCR Not detected, Coronavirus OC43 (PCR) Not detected, Coronavirus HKU1 (PCR) Not detected, Coronavirus 229E (PCR) Not detected, Coronavirus NL63 (PCR) Not detected, Human Metapneumovir PCR Not detected, Influenza A (H1) PCR Not detected, Influ A (H1N1/09) PCR Not detected, Influenza A (H3) PCR Not detected, Influenza Type A (PCR) Not detected, Influenza Type B (PCR) Not detected, M. pneumoniae (PCR) Not detected, Parainfluenza 1 (PCR) Not detected, Parainfluenza 2 (PCR) Not detected, Parainfluenza 3 (PCR) Not detected, Parainfluenza 4 (PCR) Not detected, RSV (PCR) Not detected, Entero/Rhino (PCR) Not detected I & O for Last 24 hours: Intake & Output 07/04/18 07/05/18 07/06/18 07/07/18 11:59 11:59 11:59 11:59 Intake Total 1625 / 1625 2451 / 2451 Balance 1625 / 1625 2451 / 2451 Weight 209 lb 8 oz Microbiology Reports for the Last 24 Hours: Microbiology 07/06/18 09:00 Sputum - Expectorated Sputum Gram Stain - Final Assessment and Plan (1) Wheezing Current visit: Yes Status: Acute Category: Medical Code(s): R06.2 - Wheezing (2) Acute respiratory failure Current visit: Yes Status: Acute Category: Medical Code(s): J96.00 - Acute respiratory failure, unspecified whether with hypoxia or hypercapnia Overall improving. Still fairly tenuous. CT scan reviewed with patient and with significant inflammatory bronchial changes. Continue steroids, antibiotic coverage, pulmonary toilet. (3) COPD with exacerbation Current visit: No Status: Acute Category: Medical Code(s): J44.1 - Chronic obstructive pulmonary disease with (acute) exacerbation
--- NOTE | 2018-07-08 10:01 | Progress Note ---
Internal Medicine - PN: Subj *Date: 07/08/18 *Time: 10:01 Exam Vital signs and Labs for Last 24 Hours: Temp Pulse Resp BP Pulse Ox 98.6 F 94 H 16 166/85 94 L 07/08/18 08:00 07/08/18 08:00 07/08/18 08:00 07/08/18 08:00 07/08/18 08:00 I & O for Last 24 hours: Intake & Output 07/05/18 07/06/18 07/07/18 07/08/18 23:59 23:59 23:59 23:59 Intake Total 270 / 270 2525 / 2525 3407 / 3407 927 / 927 Balance 270 / 270 2525 / 2525 3407 / 3407 927 / 927 Weight 95.028 kg 95.028 kg Microbiology Reports for the Last 24 Hours: Microbiology 07/05/18 16:20 Blood Blood Culture - Preliminary NO GROWTH AFTER 48 HOURS 07/05/18 16:20 Blood Blood Culture - Preliminary NO GROWTH AFTER 48 HOURS 07/06/18 09:00 Sputum - Expectorated Sputum Gram Stain - Final 07/06/18 09:00 Sputum - Expectorated Sputum Sputum Culture - Preliminary Assessment and Plan (1) Wheezing Current visit: Yes Status: Acute Category: Medical Code(s): R06.2 - Wheezing (2) Acute respiratory failure Current visit: Yes Status: Acute Category: Medical Code(s): J96.00 - Acute respiratory failure, unspecified whether with hypoxia or hypercapnia (3) COPD with exacerbation Current visit: No Status: Acute Category: Medical Code(s): J44.1 - Chronic obstructive pulmonary disease with (acute) exacerbation The patient's infection will respond to the chosen ABx?: Yes Is the patient receiving the right drug, dose, and route?: Yes Could a more targeted ABx be ordered?: No (CULTURES NOT GROWING ANYTHING AT THIS TIME.)
--- NOTE | 2018-07-08 15:50 | Progress Note ---
Internal Medicine - PN: Subj *Date: 07/08/18 *Time: 13:00 Interval history: Overnight remained stable on supplemental oxygen. Remains afebrile. Tolerating regular diet. Still feels short of breath. Getting up and ambulating several times a day however has dyspnea with exertion. Denies any chest pain, hemoptysis, nausea vomiting or diarrhea, or headache. Exam Vital signs and Labs for Last 24 Hours: Temp Pulse Resp BP Pulse Ox 98.0 F 92 H 20 160/82 92 L 07/08/18 12:00 07/08/18 12:00 07/08/18 13:43 07/08/18 12:00 07/08/18 12:00 I & O for Last 24 hours: Intake & Output 07/05/18 07/06/18 07/07/18 07/08/18 23:59 23:59 23:59 23:59 Intake Total 270 / 270 2525 / 2525 3557 / 3557 927 / 927 Balance 270 / 270 2525 / 2525 3557 / 3557 927 / 927 Weight 95.028 kg 95.028 kg Microbiology Reports for the Last 24 Hours: Microbiology 07/05/18 16:20 Blood Blood Culture - Preliminary NO GROWTH AFTER 48 HOURS 07/05/18 16:20 Blood Blood Culture - Preliminary NO GROWTH AFTER 48 HOURS - *Routine HEENT Exam Head: Present: normocephalic, atraumatic Eye: Present: EOMI, PERRL ENT: Present: mucous membranes moist - *Routine Neck Exam Present: supple, full ROM. Absent: JVD - *Routine Respiratory Exam Present: prolonged expiratory phase, wheezes. Absent: accessory muscle use, CTA bilaterally, crackles - *Routine Cardiovascular Exam Present: RRR, Normal S1, Normal S2. Absent: murmur - *Routine Abdominal Exam Present: soft, normoactive bowel sounds. Absent: tenderness - *Routine Rectal Exam Patient deferred: visual exam - *Routine Exam Patient deferred: penile exam - *Routine Extremities Exam Absent: cyanosis, clubbing, edema - *Routine Skin Exam Present: intact. Absent: cyanosis, erythema - *Routine Neurological Exam Present: alert, oriented X3, CN II-XII intact. Absent: altered mental status Assessment and Plan (1) Wheezing Current visit: Yes Status: Acute Category: Medical Code(s): R06.2 - Wheezing (2) Acute respiratory failure Current visit: Yes Status: Acute Category: Medical Code(s): J96.00 - Acute respiratory failure, unspecified whether with hypoxia or hypercapnia Interval improvement (3) COPD with exacerbation Current visit: No Status: Acute Category: Medical Code(s): J44.1 - Chronic obstructive pulmonary disease with (acute) exacerbation Continue antibiotics, continue steroids, continue breathing treatments. -Due to prolonged steroid courses past 4-6 weeks prior to this admission, will need steroid taper at time of discharge. (4) Depression Current visit: Yes Status: Chronic Qualifiers: Depression Type: unspecified Qualified Code(s): F32.9 - Major depressive disorder, single episode, unspecified Category: Medical Code(s): F32.9 - Major depressive disorder, single episode, unspecified Continue home medications (5) Hypothyroid Current visit: Yes Status: Chronic Qualifiers: Hypothyroidism type: acquired Qualified Code(s): E03.9 - Hypothyroidism, unspecified Category: Medical Code(s): E03.9 - Hypothyroidism, unspecified Continue home levothyroxine dose - Assessment and plan all Dx Assessment and Plan for all problems:: To needs to require hospitalization for inpatient management of acute hypoxemic respiratory failure due to COPD exacerbation
--- NOTE | 2018-07-09 11:41 | Progress Note ---
Internal Medicine - PN: Subj *Date: 07/09/18 *Time: 11:20 Interval history: Table overnight on consistent oxygen support. Ambulating around the room. Voiding independently. Remains afebrile. Still short of breath., Vomiting, diarrhea, fevers/chills. Hemodynamically stable. Exam Vital signs and Labs for Last 24 Hours: Temp Pulse Resp BP Pulse Ox 97.7 F 86 20 156/90 97 07/09/18 08:00 07/09/18 08:00 07/09/18 08:44 07/09/18 08:00 07/09/18 08:00 I & O for Last 24 hours: Intake & Output 07/06/18 07/07/18 07/08/18 07/09/18 23:59 23:59 23:59 23:59 Intake Total 2525 / 2525 3557 / 3557 1996 687 / 687 Balance 2525 / 2525 3557 / 3557 1996 687 / 687 Weight 95.028 kg Microbiology Reports for the Last 24 Hours: Microbiology 07/06/18 09:00 Sputum - Expectorated Sputum Gram Stain - Final 07/06/18 09:00 Sputum - Expectorated Sputum Sputum Culture - Final Normal Respiratory Kita Narrative: - *Routine HEENT Exam Head: Present: normocephalic, atraumatic Eye: Present: EOMI, PERRL ENT: Present: mucous membranes moist - *Routine Neck Exam Present: supple, full ROM. Absent: JVD - *Routine Respiratory Exam Present: prolonged expiratory phase, wheezes. Absent: accessory muscle use, CTA bilaterally, crackles; NO interval change - *Routine Cardiovascular Exam Present: RRR, Normal S1, Normal S2. Absent: murmur - *Routine Abdominal Exam Present: soft, normoactive bowel sounds. Absent: tenderness - *Routine Rectal Exam Patient deferred: visual exam - *Routine Exam Patient deferred: penile exam - *Routine Extremities Exam Absent: cyanosis, clubbing, edema - *Routine Skin Exam Present: intact. Absent: cyanosis, erythema - *Routine Neurological Exam Present: alert, oriented X3, CN II-XII intact. Absent: altered mental status Assessment and Plan (1) Wheezing Current visit: Yes Status: Acute Category: Medical Code(s): R06.2 - Wheezing (2) Acute respiratory failure Current visit: Yes Status: Acute Category: Medical Code(s): J96.00 - Acute respiratory failure, unspecified whether with hypoxia or hypercapnia (3) COPD with exacerbation Current visit: No Status: Acute Category: Medical Code(s): J44.1 - Chronic obstructive pulmonary disease with (acute) exacerbation (4) Depression Current visit: Yes Status: Chronic Qualifiers: Depression Type: unspecified Qualified Code(s): F32.9 - Major depressive disorder, single episode, unspecified Category: Medical Code(s): F32.9 - Major depressive disorder, single episode, unspecified (5) Hypothyroid Current visit: Yes Status: Chronic Qualifiers: Hypothyroidism type: acquired Qualified Code(s): E03.9 - Hypothyroidism, unspecified Category: Medical Code(s): E03.9 - Hypothyroidism, unspecified - Assessment and plan all Dx Assessment and Plan for all problems:: Current course with antibiotics and steroids. Instructed to get up out of bed several times today. Provided with incentive spirometer. Continues to require inpatient management
--- NOTE | 2018-07-10 09:01 | Progress Note ---
Internal Medicine - PN: Subj *Date: 07/10/18 *Time: 08:00 Interval history: Continues to require submental oxygen. Denies any fevers. Tolerating regular diet. Ambulating with supplemental oxygen. Having intermittent dyspnea for which he has been using morphine. Denies any nausea, vomiting, headaches. Does have some heartburn today. Reports having had bowel movement in the past 24 hours. Using incentive spirometer. Exam Vital signs and Labs for Last 24 Hours: Temp Pulse Resp BP Pulse Ox 97.8 F 85 18 136/76 95 07/10/18 08:00 07/10/18 08:00 07/10/18 08:00 07/10/18 08:00 07/10/18 08:00 I & O for Last 24 hours: Intake & Output 07/07/18 07/08/18 07/09/18 07/10/18 23:59 23:59 23:59 23:59 Intake Total 3557 / 3557 1996 687 / 687 360 / 360 Output Total 1100 / 1100 400 / 400 Balance 3557 / 3557 1996 -413 / -413 -40 / -40 Microbiology Reports for the Last 24 Hours: Microbiology 07/06/18 09:00 Sputum - Expectorated Sputum Gram Stain - Final 07/06/18 09:00 Sputum - Expectorated Sputum Sputum Culture - Final Normal Respiratory Kita - *Routine HEENT Exam Head: Present: normocephalic, atraumatic Eye: Present: EOMI, PERRL ENT: Present: mucous membranes moist - *Routine Neck Exam Present: supple, full ROM. Absent: JVD - *Routine Respiratory Exam Present: prolonged expiratory phase, wheezes (Interval improvement in wheeze, good air movement today.). Absent: accessory muscle use, CTA bilaterally, rales - *Routine Cardiovascular Exam Present: RRR, Normal S1, Normal S2. Absent: murmur - *Routine Abdominal Exam Present: soft - *Routine Rectal Exam Patient deferred: visual exam - *Routine Exam Patient deferred: penile exam - *Routine Extremities Exam Absent: cyanosis, clubbing, edema - *Routine Skin Exam Present: intact. Absent: cyanosis, erythema - *Routine Neurological Exam Present: alert, oriented X3, CN II-XII intact. Absent: altered mental status Assessment and Plan (1) Wheezing Current visit: Yes Status: Acute Category: Medical Code(s): R06.2 - Wheezing (2) Acute respiratory failure Current visit: Yes Status: Acute Category: Medical Code(s): J96.00 - Acute respiratory failure, unspecified whether with hypoxia or hypercapnia (3) COPD with exacerbation Current visit: No Status: Acute Category: Medical Code(s): J44.1 - Chronic obstructive pulmonary disease with (acute) exacerbation (4) Depression Current visit: Yes Status: Chronic Qualifiers: Depression Type: unspecified Qualified Code(s): F32.9 - Major depressive disorder, single episode, unspecified Category: Medical Code(s): F32.9 - Major depressive disorder, single episode, unspecified (5) Hypothyroid Current visit: Yes Status: Chronic Qualifiers: Hypothyroidism type: acquired Qualified Code(s): E03.9 - Hypothyroidism, unspecified Category: Medical Code(s): E03.9 - Hypothyroidism, unspecified - Assessment and plan all Dx Assessment and Plan for all problems:: Continue current course -Decrease frequency of morphine -Continue supplemental ox -Increase frequency of DuoNeb -Ambulate as tolerated -Continue bowel regimen -Continues to require inpatient management as not medically stable for discharge home yet.
--- NOTE | 2018-07-11 12:42 | Progress Note ---
Internal Medicine - PN: Subj *Date: 07/11/18 *Time: 09:00 Interval history: Overnight Mr. Schulte was able to wean off supplemental oxygen with O2 sats in the low 90s. He is morphine x1 for shortness of breath. Had 2 more bowel movements in the past 24 hours. Feeling improved today. Still gets short of breath with ambulation. Remained afebrile. Did have one episode of left-sided chest pain reproducible on exam with no referred pains to neck or shoulder. Denies any nausea or vomiting, rashes, worsening shortness of breath. Cough with interval improvement. Exam Vital signs and Labs for Last 24 Hours: Temp Pulse Resp BP Pulse Ox 98.0 F 72 18 153/87 94 L 07/11/18 11:15 07/11/18 11:15 07/11/18 11:15 07/11/18 11:15 07/11/18 11:15 I & O for Last 24 hours: Intake & Output 07/08/18 07/09/18 07/10/18 07/11/18 23:59 23:59 23:59 23:59 Intake Total 1996 687 / 687 1500 / 1500 Output Total 1100 / 1100 1100 / 1100 300 / 300 Balance 1996 -413 / -413 400 / 400 -300 / -300 Weight 99.422 kg Microbiology Reports for the Last 24 Hours: Microbiology 07/05/18 16:20 Blood Blood Culture - Final NO GROWTH AFTER 5 DAYS 07/05/18 16:20 Blood Blood Culture - Final NO GROWTH AFTER 5 DAYS - *Routine HEENT Exam Head: Present: normocephalic, atraumatic Eye: Present: EOMI, PERRL ENT: Present: mucous membranes moist - *Routine Neck Exam Present: supple, full ROM. Absent: JVD, lymphadenopathy - Routine Chest/Breast/Axilla Exam Chest wall: Present: tenderness (Tender to palpation mid left pectoralis muscle, reproduces pain he experienced this morning) - *Routine Respiratory Exam Present: CTA bilaterally, prolonged expiratory phase, wheezes. Absent: accessory muscle use, rales, crackles (Faint intermittent wheeze right, no wheeze on the left, good air movement bilaterally) - *Routine Cardiovascular Exam Present: RRR, Normal S1, Normal S2. Absent: murmur - *Routine Abdominal Exam Present: soft, normoactive bowel sounds. Absent: tenderness - *Routine Rectal Exam Patient deferred: visual exam - *Routine Exam Patient deferred: penile exam - *Routine Extremities Exam Absent: cyanosis, clubbing, edema - *Routine Skin Exam Present: intact. Absent: cyanosis, erythema - *Routine Neurological Exam Present: alert, oriented X3, CN II-XII intact. Absent: altered mental status - Routine Psychiatric Exam Present: normal affect, normal thought process, cooperative, good insight Assessment and Plan (1) Wheezing Current visit: Yes Status: Acute Category: Medical Code(s): R06.2 - Wheezing (2) Acute respiratory failure Current visit: Yes Status: Acute Category: Medical Code(s): J96.00 - Acute respiratory failure, unspecified whether with hypoxia or hypercapnia (3) COPD with exacerbation Current visit: No Status: Acute Category: Medical Code(s): J44.1 - Chronic obstructive pulmonary disease with (acute) exacerbation (4) Depression Current visit: Yes Status: Chronic Qualifiers: Depression Type: unspecified Qualified Code(s): F32.9 - Major depressive disorder, single episode, unspecified Category: Medical Code(s): F32.9 - Major depressive disorder, single episode, unspecified (5) Hypothyroid Current visit: Yes Status: Chronic Qualifiers: Hypothyroidism type: acquired Qualified Code(s): E03.9 - Hypothyroidism, unspecified Category: Medical Code(s): E03.9 - Hypothyroidism, unspecified - Assessment and plan all Dx Assessment and Plan for all problems:: Continue current course of antibiotics and steroids -Transition oral medication -O2 monitor while walking to assess for oxygen need at home, upon discharge -Echocardiogram to assess for any cardiac pathology responsible for her episodes of shortness of breath and dyspnea with exertion -Continue to wean morphine -If remains stable on oral medications, plan for discharge tomorrow morning.
--- NOTE | 2018-07-11 18:06 | Consult Report ---
*Admission Date: 07/05/18 *Chief complaint: cough and wheeze for 7 weeks *History of present illness: Mr. Schulte is a 67-year-old man who has the significant past history of apparent hypersensitivity pneumonitis based upon respiratory symptoms, and abnormal CT scan of the chest, transbronchial biopsy demonstrating granulomatous inflammation and a history of exposure to toluene diisocyanate at work. I have followed him over several years and all symptoms cleared except for dyspnea on exertion which, at the time of the last visit in January, I felt was related to deconditioning more than any persistent respiratory problem. Spirometry has always been normal and he definitely does not have COPD. However, in 2015, he had a paradoxical response to albuterol which caused bronchospasm. On a cardiopulmonary exercise test in 2014, there appeared to be a pulmonary cause for his dyspnea but post exercise spirometry was not undertaken. In any case, in January, he seemed to be doing well and, because I was concerned that he might have a component of exercise-induced asthma, I left him on Qvar. He apparently remained well until about 7 weeks ago when he developed upper respiratory tract symptoms suggestive of a cold. He had no fever but he was expectorating a great deal of greenish sputum. I understand he was treated with several antibiotics without improvement and was hospitalized briefly on June 26 where antibiotics and corticosteroids along with bronchodilators were given. At home, he felt s omewhat better until a couple of days before admission when he became much more wheezy. He has had a persisting cough but does not expectorate very much now. The hospital this last week, he has gradually improved but he is still dyspneic just moving about the hospital room and sometimes in conversation. I do not think he has been on Qvar lately but he has been on Stiolto. I do not think we realized it in clinic but he has been taking carvedilol for several years; he was given by Dr. Adam and I am not sure why because I do not have all the notes. Mr. Schulte has not had symptoms of esophageal reflux. His appetite is good and his weight has been relatively stable. He has no significant abdominal complaints except some constipation now. He had no rash and, again, no fever associated with this illness. [facility] History Medical History: Reports:: Asthma, Atherosclerotic Heart Disease, Chronic Obstructive Pulmonary Disease (COPD) (He does not have COPD.), Coronary Artery Disease, Hyperlipidemia, Myocardial Infarction Denies:: Cancer, Diabetes Mellitus Type 1, Diabetes Mellitus Type 2, MRSA Other Medical History: Reports: Arthritis, Hypothyroidism, Thyroid Disease Other Surgeries: Yes: Cardiac Catheterization, Cholecystectomy, Colonoscopy, EGD, Hernia Repair, Other (PLATE IN HEAD.) Amputation: No Fractures: No Comment: Reviewed - *Social History Educational Level: Completed High School Smoking Status: Never smoker Alcohol Intake: former Alcohol Intake Frequency:: other Substance Use Type: denies use Occupational Status: retired Housing: house Household Members: spouse Comment: His is with him at the bedside with her sister. She needs TKR but is waiting until he is better. - Psychiatric History Expresses thoughts of harming self/others: None Suicide Plan Description: No Plan *Family Hx:: Asthma, Heart Attack, Hyperlipidemia, Hypertension, Thyroid Disorder Review of Systems - Constitutional Comments: Negative - *Respiratory Reports cough, Reports shortness of breath, Reports wheezing - *Gastrointestinal Reports constipation - *Neurologic Reports weakness, Denies abnormal walking, Denies behavioral changes, Denies confusion, Denies seizure-like activity, Denies unsteadiness, Denies lack of coordination, Denies loss of vision Meds Home Medications Medication Instructions Recorded Confirmed Type Azithromycin [Z-Shadi 250mg Tab] 250 mg PO DAILY 07/06/18 07/06/18 History Cefdinir [Omnicef 300mg Capsule] 300 mg PO BID 07/06/18 07/06/18 History buPROPion HCl [Bupropion HCl Sr] 100 mg PO BID 07/06/18 07/06/18 History Allergies Allergy/AdvReac Type Severity Reaction Status Date / Time erythromycin base Allergy Intermediate I-RASH Verified 07/05/18 16:13 penicillin G Allergy Intermediate I-RASH Verified 07/05/18 16:13 Exam Vital signs and Labs for Last 24 Hours: Temp Pulse Resp BP Pulse Ox 97.9 F 83 18 134/83 94 L 07/11/18 15:05 07/11/18 15:05 07/11/18 15:05 07/11/18 15:05 07/11/18 15:05 Mr. Schulte is a very pleasant, slightly breathless, overweight man who is lying in bed at a 30-40 angle and in no distress. HEENT: Unremarkable Neck: No JVD and no adenopathy Chest: Symmetrical expansion; normal percussion note bilaterally; diffuse, low pitched expiratory wheezes with scattered inspiratory wheezes. I heard no crackles. Heart: Regular rhythm; no murmur Abdomen: Protuberant; bowel sounds diminished; soft, nontender, no masses or organomegaly Skin: No rash Musculoskeletal: No elmira arthritis Extremities: No clubbing or edema Neurological: Grossly intact I & O for Last 24 hours: Intake & Output 07/08/18 07/09/18 07/10/18 07/11/18 23:59 23:59 23:59 23:59 Intake Total 1996 687 / 687 1500 / 1500 900 / 900 Output Total 1100 / 1100 1100 / 1100 300 / 300 Balance 1996 -413 / -413 400 / 400 600 / 600 Weight 99.422 kg Microbiology Reports for the Last 24 Hours: Microbiology 07/05/18 16:20 Blood Blood Culture - Final NO GROWTH AFTER 5 DAYS 07/05/18 16:20 Blood Blood Culture - Final NO GROWTH AFTER 5 DAYS Internal Medicine - CN: Reslt - Labs CBC & Chem 7: 07/06/18 06:21 07/06/18 06:21 - ABG Interpretation ABG results: 07/05/18 16:22 ABG pH 7.41 ABG pCO2 40.6 ABG pO2 102.4 H ABG HCO3 25.2 ABG Total CO2 26.4 ABG O2 Saturation 98 ABG Base Excess 0.5 Assessment and Plan (1) Wheezing Current visit: Yes Status: Acute Category: Medical Code(s): R06.2 - Wheezing (2) Acute respiratory failure Current visit: Yes Status: Acute Category: Medical Code(s): J96.00 - Acute respiratory failure, unspecified whether with hypoxia or hypercapnia (3) COPD with exacerbation Current visit: No Status: Acute Category: Medical Code(s): J44.1 - Chronic obstructive pulmonary disease with (acute) exacerbation (4) Depression Current visit: Yes Status: Chronic Qualifiers: Depression Type: unspecified Qualified Code(s): F32.9 - Major depressive disorder, single episode, unspecified Category: Medical Code(s): F32.9 - Major depressive disorder, single episode, unspecified (5) Hypothyroid Current visit: Yes Status: Chronic Qualifiers: Hypothyroidism type: acquired Qualified Code(s): E03.9 - Hypothyroidism, unspecified Category: Medical Code(s): E03.9 - Hypothyroidism, unspecified - Assessment and plan all Dx Assessment and Plan for all problems:: Mr. Schulte seems to be suffering from status asthmaticus rather than any infectious process. There is no evidence of viral or atypical bacterial infection and sputum culture only showed normal makayla. I personally reviewed his chest x-rays and there is no evidence of pneumonia on any of them. Frankly, I am puzzled. He has been exposed to nothing new at home and there has been no excavation around his home. He has not traveled and no one else has been ill. They have no new pets. He is on no new medications except what has been given for the illness. I did not realize that he has been on carvedilol and certainly beta-blockers can trigger asthma although I am not sure why now. He has been on it a couple of years at least. Since he had a paradoxical response to albuterol on pulmonary function studies a few years ago and may have had exercise-induced bronchospasm on the CPX, I recommend stopping albuterol and Stiolto and using only anticholinergics and inhaled steroids to treat him for now. I have an ope ruiz to see him in 2 weeks in my clinic here at [facility] and would like to do so if possible. I have ordered a sputum for eosinophil although it may not be very helpful since she has been on corticosteroids for so long now. Thank you for the opportunity to participate in his care. Please give me a call if you think there is something else I should know.
--- NOTE | 2018-07-12 08:34 | Discharge Summary ---
General - General Admission date:: 07/05/18 Discharge date: 07/12/18 HPI HPI: "Mr. Schulte is a 67-year-old man who has the significant past history of apparent hypersensitivity pneumonitis based upon respiratory symptoms, and abnormal CT scan of the chest, transbronchial biopsy demonstrating granulomatous inflammation and a history of exposure to toluene diisocyanate at work. I have followed him over several years and all symptoms cleared except for dyspnea on exertion which, at the time of the last visit in January, I felt was related to deconditioning more than any persistent respiratory problem. Spirometry has always been normal and he definitely does not have COPD. However, in 2015, he had a paradoxical response to albuterol which caused bronchospasm. On a cardiopulmonary exercise test in 2014, there appeared to be a pulmonary cause fo r his dyspnea but post exercise spirometry was not undertaken. In any case, in January, he seemed to be doing well and, because I was concerned that he might have a component of exercise-induced asthma, I left him on Qvar. He apparently remained well until about 7 weeks ago when he developed upper respiratory tract symptoms suggestive of a cold. He had no fever but he was expectorating a great deal of greenish sputum. I understand he was treated with several antibiotics without improvement and was hospitalized briefly on June 26 where antibiotics and corticosteroids along with bronchodilators were given. At home, he felt somewhat better until a couple of days before admission when he became much more wheezy. He has had a persisting cough but does not expectorate very much now. Mr. Schulte has not had symptoms of esophageal reflux. His appetite is good and his weight has been relatively stable. He has no significant abdominal complaints except some constipation now. He had no rash and, again, no fever associated with this illness." Above note per pulmonary consultation. Patient was admitted as noted above after failure of multiple outpatient antibiotics and rounds of steroids because of persistent wheezing and hypoxia and significant dyspnea with exertion. Please see H&P documentation for details. Hospital Course Hospital Course: Patient was admitted, placed on double coverage antibiotic therapy for Pseudomonas given his multiple antibiotic coverage and failure to improve and sputum production. Blood cultures, sputum cultures were nondiagnostic for bacterial infection. Chest x-ray was unremarkable except for bronchial inflammation and CT scan revealed significant bronchial inflammation without evidence of infiltrates. Patient improved with steroids over the next several days and was slowly weaned off on. He improved in a very slow stepwise fashion but his burden of wheezing and dyspnea was very significant on admission. Over the past day or so he is actually been able to be off oxygen completely. Pulmonary consultation was obtained, reviewed and much appreciated. Below is noted the assessment from that consultation. "Mr. Schulte seems to be suffering from status asthmaticus rather than any infectious process. There is no evidence of viral or atypical bacterial infection and sputum culture only showed normal makayla. I personally reviewed his chest x-rays and there is no evidence of pneumonia on any of them. Frankly, I am puzzled. He has been exposed to nothing new at home and there has been no excavation around his home. He has not traveled and no one else has been ill. They have no new pets. He is on no new medications except what has been given for the illness. I did not realize that he has been on carvedilol and certainly beta-blockers can trigger asthma although I am not sure why now. He has been on it a couple of years at least. Since he had a paradoxical response to albuterol on pulmonary function studies a few years ago and may have had exercise-induced bronchospasm on the CPX, I recommend stopping albuterol and Stiolto and using only anticholinergics and inhaled steroids to treat him for now. I have an opening to see him in 2 weeks in my clinic here at [facility] and would like to do so if possible. I have ordered a sputum for eosinophil although it may not be very helpful since she has been on corticosteroids for so long now. Thank you for the opportunity to participate in his care. Please give me a call if you think there is something else I should know." As a result, patient will be discharged home today with Spiriva and Qvar prescription as well as a steroid taper, he will follow-up with pulmonary in 2 weeks. We will hold long-acting beta agonist. Close follow-up with me on Tuesday morning. Objective Vital signs: Temp Pulse Resp BP Pulse Ox 97.2 F L 87 18 137/84 93 L 07/12/18 08:00 07/12/18 08:00 07/12/18 08:00 07/12/18 08:00 07/12/18 08:00 Narrative: Overall patient seems to be in good spirits. He is alert, oriented. Oropharynx clear. No JVD. Lungs have good air movement, minimal expiratory wheezing but vastly improved over admission him. Heart rate regular without murmurs. No edema. Abdomen soft and nontender. DS: Diagnosis - Discharge Diagnosis (1) Wheezing Status: Acute (2) Acute respiratory failure Status: Acute (3) COPD with exacerbation Status: Acute (4) Depression Status: Chronic (5) Hypothyroid Status: Chronic Discharge Plan - Patient Discharge Instructions ACTIVITY: Limited activity DIET: continue same diet - Follow up Plan Follow up with: Jayme Rice MD [Consulting Physician] - 07/25/18 Georges Chacon MD [Primary Care Provider] - 07/15/18 Disposition: Home, Self-Assisted Medications: Home Medications Medication Instructions Recorded Confirmed Type Aspirin 81 mg PO DAILY 12/25/17 07/05/18 History Atorvastatin Calcium [Lipitor 80mg 80 mg PO HS 12/25/17 07/05/18 History Tablet] Carvedilol [Carvedilol 6.25mg Tab] 6.25 mg PO BID 12/25/17 07/05/18 History Levocetirizine Dihydrochloride 5 mg PO HS 12/25/17 07/05/18 History Levothyroxine Sodium 50 mcg PO DAILY 12/25/17 07/05/18 History [Levothyroxine 50mcg (0.05mg) Tab] Pantoprazole Sodium [Protonix 40mg 40 mg PO HS 12/25/17 07/05/18 History tablet] raNITIdine HCl [Ranitidine HCl] 150 mg PO DAILY 12/25/17 07/05/18 History Albuterol Sulfate [Albuterol HFA 1 - 2 puffs IH Q4-6H PRN 06/26/18 07/05/18 History Inhaler] Tiotropium Br/Olodaterol HCl 2 puffs IH DAILY 06/26/18 07/05/18 History [Stiolto Respimat Inhal Brant] Azithromycin [Z-Shadi 250mg Tab] 250 mg PO DAILY 07/06/18 07/06/18 History Cefdinir [Omnicef 300mg Capsule] 300 mg PO BID 07/06/18 07/06/18 History buPROPion HCl [Bupropion HCl Sr] 100 mg PO BID 07/06/18 07/06/18 History Prescriptions/Medication Reconciliation: New predniSONE [Prednisone 20mg Tab] 20 mg PO DAILY 30 Days #60 tab Tiotropium [place] [Spiriva Respimat] 4 gm IH DAILY #1 mist.inhal Beclomethasone Dipropionate [Qvar Redihaler] 10.6 gm IH BID #1 hfa.aeroba predniSONE [Deltasone 5mg tablet] 5 mg PO DAILY 30 Days #30 tab Continue Pantoprazole Sodium [Protonix 40mg tablet] 40 mg PO HS Levothyroxine Sodium [Levothyroxine 50mcg (0.05mg) Tab] 50 mcg PO DAILY Carvedilol [Carvedilol 6.25mg Tab] 6.25 mg PO BID raNITIdine HCl [Ranitidine HCl] 150 mg PO DAILY Levocetirizine Dihydrochloride 5 mg PO HS Atorvastatin Calcium [Lipitor 80mg Tablet] 80 mg PO HS Aspirin 81 mg PO DAILY Albuterol Sulfate [Albuterol HFA Inhaler] 1 - 2 puffs IH Q4-6H PRN PRN Reason: Shortness Of Breath Or Wheezing Azithromycin [Z-Shadi 250mg Tab] 250 mg PO DAILY buPROPion HCl [Bupropion HCl Sr] 100 mg PO BID Tiotropium Br/Olodaterol HCl [Stiolto Respimat Inhal Brant] 2 puffs IH DAILY Cefdinir [Omnicef 300mg Capsule] 300 mg PO BID
== END 2018-07-12 09:05 | disposition home or self-care (01) ==
LOC: RT 10:39 → 2ND 15:55
PROVIDERS: ADMIT Internal Medicine Adolescent Medicine; ATTEND Internal Medicine Adolescent Medicine

== ENCOUNTER → 2018-08-22 10:54 | Outpatient (POV) | payer SELFPAY | PROVIDERS: Family Provider Internal Medicine Adolescent Medicine; PCP Internal Medicine Adolescent Medicine; Visit Provider Internal Medicine | DX: Z00.00 Encounter for general adult medical examination without abnormal findings (principal) ==

== ENCOUNTER → 2018-09-19 09:11 | Outpatient (CLI) | payer MEDICARE, OTHER, SELFPAY ==
[2018-09-19 10:30] VITALS: PULSE 73; PULSE 84
[2018-09-19 11:00] VITALS: BP 132/90; BP 155/98; PULSE 73; PULSE 87; RESP 18; RESP 22; O2SAT 97
== END ==
PROVIDERS: PCP Internal Medicine Adolescent Medicine; Visit Provider Internal Medicine
DX: R06.09 Other forms of dyspnea (principal)
CPT/HCPCS: 94060; 94618; 94640; 94726; 94729

== ENCOUNTER → 2018-10-02 10:27 | Outpatient (CLI) | payer MEDICARE, OTHER, SELFPAY ==
[2018-10-02 11:07] LABS: Hemoglobin A1C 5.6 % (0.0-7.0)
== END ==
PROVIDERS: Visit Provider Internal Medicine Adolescent Medicine
DX: R73.9 Hyperglycemia, unspecified (principal)
CPT/HCPCS: 36415; 83036

== ENCOUNTER → 2018-12-11 07:30 | Outpatient (RCR) | payer MEDICARE, OTHER, SELFPAY ==
--- NOTE | 2018-11-03 10:55 | HMH.PTOPEV ---
PT Outpatient Evaluation Rehab PT Outpatient Evaluation Start: 11/03/18 09:45 Freq: Status: Active Protocol: Document 11/03/18 09:45 PDESEROUX (Rec: 11/03/18 10:55 PDESEROUX [id number]) Electronically Signed By Rusty Chiu, IVÁN 11/03/18 09:45 Outpatient Therapy Subjective History Subjective History Pt. is a 67 year old male who presents to outpatient PT with traumatic L LB pain after falling down off of a ladder 8 weeks ago. Pt. reports missing the last step while descending a step ladder and landing on his R buttock. Pt. reported his L LB pain has progressively gotten worse especially with ambulating. Pt. reports ambulating for 10' until having to sit down d/t pain. Pt. denies having radicular symptoms in BLEs. Pt. also denies having recent diagnostic imaging and injections for current pathology, and reports returning to MD in 6 weeks. PMH includes depression, heart disease(3 stents and 50% blockage in 4th stent), and HTN. See chart for current medications. Chief Complaint Pain Symptom Type Ache Dull Symptoms Relieved By Rest/Positioning Symptoms Aggravated By Physical Activity Twisting Walking Prior Functional Limitations None Current Functional Limitations Housework Recreation Activity Walking Stairs Symptom Description Activity Dependent Level of pain today (0-10) 0 Pain scale - at its best (0-10) 0 Pain scale - at its worst (0-10) 8 Lumbopelvic Eval Posture Thoracic Spine Posture Standing Position Increased Kyphosis Lumbar Spine Posture Standing Position Flattened Gait Observation General Gait Pattern Observation Decrease Weight Bear (L) Decrease Stride Lngth (R) Palapation tenderness right Lumbar/Sacral Palpation Findings None/Normal left thoracic spinal tenderness No lumbar spinal tenderness Yes: grade 3 +TTP L QL origination paraspinal tenderness No buttock tenderness No Lumbar/Sacral Palpation Findings Tenderness Accessory Movement L4 bilateral L5 bilateral S1 bilateral Range of Motion Lumbar Spine Active Flexion Range of 70 Motion (degrees) Lumbar Spine Active Extension Range of 20 Motion (degrees) Left Lumbar Spine Lateral Flexion Active 24 Range of Motion (degrees) Right Lumbar Spine Lateral Flexion 25 Active Range of Motion (degrees) Lumbar Spine ROM Limitations Soft Tissue Tightness Manual Muscle Test Bilateral Knee Extension Strength Grade 4 Good Knee Flexion Strength Grade 4 Good Hip Flexion Strength Grade 4- Good- Hip Abduction Strength Grade 4 Good Hip Adduction Strength Grade 4 Good Hip External Rotation Strength Grade 4- Good- Hip Internal Rotation Strength Grade 4- Good- Hip Extension Strength Grade 4 Good Gluteus Wilber Strength Grade 4 Good Extensor Hallucis Longus Strength Grade 5 Normal Ankle Dorsiflexion Strength Grade 5 Normal Gastronemius/Soleus Strength Grade 5 Normal DTR Rt Patellar 2+ Lt Patellar 2+ Rt Gastroc/Soleus 2+ Lt Gastroc/Soleus 2+ Altered Sensation Bilateral Comment WNL Special Tests Lumbar Spine Screen Negative Hip Krissy Test Positive Left Positive Right Unilateral Straight Leg Raise (Lasegue) Negative Left Test Negative Right Bilateral Straight Leg Raise Test Positive Crossed Straight Leg Raise Test Negative Left Negative Right True Leg Length Discrepency Test WNL Ilya Test Positive Sacroiliac Joint Compression Test Negative Left Sacroiliac Joint Distraction Test Negative Left Outpatient Therapy Assessment Impairments Problems/Impairmments Palpation Tenderness Impaired Range of Motion Impaired Strength Impaired Gait Pattern Impaired Walking Impaired Standing Impaired Household Care Impaired Stair Climbing Impaired Incline Stepping Impaired Stepping on Uneven Surface Impaired Squatting Impaired Recreational Activities Subjective C/O Pain Prognosis Rehab Potential Good Comment with HEP compliance Clinical Impression Consistent with Diagnosis Yes Consistent with L QL strain Short Term Goals Number of Weeks 2 Decrease Subjective C/O Pain Yes: worse: 03/16 Patient to be Ind w/ HEP Yes Supervisor [employer] Goals Number of Weeks 4-6 Decreased Palpation Tenderness Yes: -TTP L QL Increase Range of Motion Yes: >85% lumbar AROM throughout all planes Increase Strength Yes: 4+ to 5/5 BLE strength throughout Improve Gait Pattern without Assistive Yes Device Increase Ability to Walk Yes: >30' without pain or rest break Increase Ability to Stand Yes Improve Ability For Household Care Yes Improve Ability to Climb Stairs Yes Improve Incline Stepping Ability Yes Improve Ability to Squat Yes Return to Recreational Activities Yes: shopping with spouse Decrease Subjective C/O Pain Yes: worse: 12/17 Patient to be Ind w/ Advanced HEP Yes Outpatient Therapy Plan of Care Treatment Plan May Include Therapeutic Exercise Including Home Yes Exercise Program Manual Therapy Techniques Yes Neuromuscular Re-education Yes Therapeutic Activities to Return to Yes Previous Functional/Work Level Gait Training Yes ADL/Self Care Education Yes Mechanical Traction Yes Thermal Modalities Yes Electrical Stimulation Yes Ultrasound/Phonophoresis Yes Iontophoresis Yes Vasopneumatic Compression Pump Yes Massage Yes Eval/Re-Eval Yes Frequency Times per week 2 Duration Number of Weeks 4-6 Addendums This patient is a candidate for social No or vocational rehab? Patient/Guardian verbally acknowledges Yes understanding of treatment program and consents to further treatment? Patient/Guardian verbally acknowledges Yes understanding of diagnosis, prognosis and goals for treatment? G -code Required Yes Eval Complexity PT Charges 12285 - Low Complexity G-Code Eligible PT/OT Current Status Mobility PT/OT Current Status Modifier CK-At least 40% but less than 60% impaired, limited or restricted PT/OT Goal Status Mobility PT/OT Goal Status Modifer CJ-At least 20% but less than 40% impaired, limited or restricted Shoulder/Elbow Eval Shoulder Objective Measurements Elbow Objective Measurements PHYSICIAN CERTIFICATION: I certify the specified therapy services for Mendoza Schulte are required, authorized, and reviewed every 30 days.
== END ==
LOC: PT 11-03 08:30 → PT.CARL 07:30
PROVIDERS: Visit Provider Internal Medicine Adolescent Medicine
DX: M62.830 Muscle spasm of back (principal)
CPT/HCPCS: 97014; 97033; 97110; 97116; 97140; 97163; G0283

== ENCOUNTER → 2019-02-13 08:29 | Outpatient (POV) | payer MEDICARE, OTHER, SELFPAY | PROVIDERS: Visit Provider Internal Medicine | DX: Z00.00 Encounter for general adult medical examination without abnormal findings (principal) ==

== ENCOUNTER → 2019-02-19 12:53 | Outpatient (CLI) | payer MEDICARE, OTHER, SELFPAY ==
--- NOTE | 2019-02-19 13:05 | XR_ITS ---
XR chest 2V HISTORY: ITS.REASON: ACUTE CHEST WALL PAIN ORDERING PHYSICIAN: Georges Chacon MD PATIENT AGE: 68 years COMPARISON: None FINDINGS: The cardiomediastinal silhouette and pulmonary vascularity are within normal limits. Coronary artery calcifications are present The lungs are clear without infiltrates, suspicious nodules, or pleural effusions. There is a nondisplaced fracture of the right 10th rib. IMPRESSION: 1. Nondisplaced fracture right 10th rib otherwise negative chest 2. Coronary artery calcifications
--- NOTE | 2019-02-19 13:05 | XR_ITS ---
XR ribs RT 2V HISTORY: ORDERING PHYSICIAN: Georges Chacon MD PATIENT AGE: 68 years Comparison: None FINDINGS: A frontal view of the chest shows no acute finding. Multiple views of the right ribs were obtained there is nondisplaced fracture involving the antra aspect of the right 10th rib. No other significant anomalies are evident. IMPRESSION: Nondisplaced right 10th rib fracture
== END ==
PROVIDERS: PCP Internal Medicine Adolescent Medicine; Visit Provider Internal Medicine Adolescent Medicine
DX: R07.89 Other chest pain (principal)
CPT/HCPCS: 71046; 71100

== ENCOUNTER → 2019-08-07 09:06 | Outpatient (CLI) | payer MEDICARE, OTHER, SELFPAY ==
[2019-08-07 09:23] LABS: Basophils # 0.1 K/mm3 (0-0.2); Basophils % 0.9 % (0.1-2.0); Eosinophils # 0.4 K/mm3 (0.0-0.4); Eosinophils % 5.5 % (0.1-12.0); Hematocrit 45.1 % (42.0-52.0); Hemoglobin 14.4 g/dL (14.1-18.0); Lymphocytes # 2.6 K/mm3 (0.7-4.5); Lymphocytes % 33.1 % (10-50); Mean Corpuscular HGB Conc 31.9 g/dL (31.8-35.4); Mean Platelet Volume 9.2 fl (7.4-10.4); Monocytes # 0.6 K/mm3 (0.1-1.0); Monocytes % 7.1 % (1.7-9.3); Neutrophils # 4.2 K/mm3 (1.8-7.8); Neutrophils % 53.4 % (37.0-80.0); Platelet Count 203 K/mm3 (142-424); Red Blood Count 4.95 M/mm3 (4.60-6.20); Red Cell Distribution Width 13.6 % (11.5-17.5); White Blood Count 7.8 K/mm3 (4.8-10.8)
[2019-08-07 10:42] LABS: Alanine Aminotransferase 35 U/L (12-78); Albumin Level 3.6 gm/dL (3.4-5.0); Albumin/Globulin Ratio 1.4 (1.1-1.8); Alkaline Phosphatase 99 U/L (46-116); Anion Gap 12.7 mEq/L (5-15); Aspartate Amino Transferase 18 U/L (15-37); Bilirubin,Total 0.5 mg/dL (0.2-1.0); Blood Urea Nitrogen 14 mg/dL (7-18); Calcium 8.8 mg/dL (8.5-10.1); Carbon Dioxide 28 mmol/L (21.0-32.0); Chloride 108 mmol/L (98-107); Chol/HDL Ratio 4.1 (1-3.5); Cholesterol 123 mg/dL (140-200); Estimated Glomerular Filt Rate 84 ml/min (>60); GFR (African American) 102 ML/MIN (>60); Globulin 2.5 gm/dl (1.3-3.2); Glucose 111 mg/dL (74-106); HDL Cholesterol 30 mg/dL (27-67); LDL Cholesterol 62 mg/dL (0-130); Potassium 4.7 mmoL/L (3.5-5.1); Sodium 144 mmol/L (136-145); Thyroid Stimulating Hormone 4.53 uIU/ml (0.358-3.740); Total Protein,Serum 6.1 gm/dL (6.4-8.2); Triglycerides 154 mg/dL (30-200); VLDL Cholesterol 31 mg/dL (0-40)
== END ==
PROVIDERS: Visit Provider Internal Medicine Adolescent Medicine
DX: I10 Essential (primary) hypertension (principal); E78.5 Hyperlipidemia, unspecified; E03.9 Hypothyroidism, unspecified
CPT/HCPCS: 36415; 80053; 80061; 84443; 85025

== ENCOUNTER 2020-03-20 15:11 | Observation (INO) | payer MEDICARE, OTHER, SELFPAY ==
[2020-03-20 15:12] VITALS: BP 151/92; PULSE 79; RESP 18; TEMP 36.9; O2SAT 97; BMI 34.9
--- NOTE | 2020-03-20 15:12 | ECG_ITS ---
APPROVED REPORT Exam: Resting ECG HR:80 bpm ECG Measurements Heart Rate [address] 160 P 58 QRSd 80 QRS 46 QT 370 T 54 QTc 426 <Conclusion> Normal sinus rhythm Normal ECG Electronically signed by : Georges Chacon, 03/21/2020 06:31:12
--- NOTE | 2020-03-20 15:16 | XR_ITS ---
PROCEDURE: XR CHEST 2V CLINICAL HISTORY: chest pain Chest pain radiating down the left arm COMPARISON: CHESTW CT chest w con from 07/05/2018 CXR2V XR chest 2V from 07/05/2018 CXR2V XR chest 2V from 07/06/2018 CXR2V XR chest 2V from 02/19/2019 FINDINGS: The cardiomediastinal silhouette and pulmonary vascularity are within normal limits. The lungs are clear without infiltrates, suspicious nodules, or pleural effusions. No acute bony abnormalities. IMPRESSION: No acute findings. Dictated by: Goyo Herrera MD 03/20/2020 16:01 Electronically signed by Goyo Herrera MD in [place] 03/20/2020 16:01
[2020-03-20 15:31] LABS: Basophils # 0.1 K/mm3 (0-0.2); Basophils % 0.6 % (0.1-2.0); Eosinophils # 0.4 K/mm3 (0.0-0.4); Eosinophils % 4.6 % (0.1-12.0); Hemoglobin 14.2 g/dL (14.1-18.0); Lymphocytes # 3.5 K/mm3 (0.7-4.5); Lymphocytes % 37.2 % (10-50); Mean Corpuscular Hemoglobin 29.2 pg (27.0-31.2); Mean Corpuscular Volume 88.5 fl (80-94); Mean Platelet Volume 8.8 fl (7.4-10.4); Monocytes # 0.7 K/mm3 (0.1-1.0); Monocytes % 7.7 % (1.7-9.3); Neutrophils # 4.7 K/mm3 (1.8-7.8); Neutrophils % 49.9 % (37.0-80.0); Platelet Count 217 K/mm3 (142-424); Red Blood Count 4.85 M/mm3 (4.60-6.20); Red Cell Distribution Width 13.5 % (11.5-17.5); White Blood Count 9.3 K/mm3 (4.8-10.8)
[2020-03-20 15:37] LABS: Anion Gap 11.5 mEq/L (5-15); Blood Urea Nitrogen 21 mg/dl (9-20); Calcium 9.1 mg/dl (8.4-10.2); Carbon Dioxide 23 mmol/L (22.0-30.0); Chloride 107 mmol/L (98-107); Creatinine Clearance Estimated 97 mL/min (50-200); Estimated Glomerular Filt Rate 84 ml/min (>60); GFR (African American) 102 ML/MIN (>60); Glucose 105 mg/dl (74-100); Potassium 4.5 mmoL/L (3.5-5.1); Sodium 137 mmol/L (136-145)
--- NOTE | 2020-03-20 15:48 | PC.NURSE ---
pt going to xray via w/c
[2020-03-20 15:50] LABS: Troponin I < 0.01 ng/ml (0.00-0.034)
--- NOTE | 2020-03-20 16:54 | PC.NURSE ---
Dr. Osborne speaking with Dr. Reardon at this time.
--- NOTE | 2020-03-20 17:06 | HMH.EDCP ---
ED Disposition Clinical Impression: Chest pain, CAD (coronary artery disease) Disposition: Admitted as Observation Condition on Discharge: Good Referrals: Jayme Reardon MD [Primary Care Provider] - - Critical Care Critical Care Time: No Attestation: On 03/20/20, the high probability of a clinically significant, sudden or life threatening deterioration of the following system(s) required my full and direct attention, intervention and personal management. The time I documented below is in addition to time spent performing reported procedures but includes the following listed in this critical care notation. Medical Decision Making - Medical Records Medical records reviewed: Yes: I reviewed the patient's medical records. - Ronny Inquiry Pt receiving controlled substance: No Vital Signs: 03/20/20 15:12 Temperature 98.4 F Temperature Source Oral Pulse Rate [Radial] 79 Respiratory Rate 18 Blood Pressure [Right Arm] 151/92 H Blood Pressure Mean [Right Arm] 111 Blood Pressure Source [Right Arm] Automatic Cuff Blood Pressure Position [Right Arm] Sitting 02 Sat by Pulse Oximetry 97 Oxygen Delivery Method Room Air - Lab Data Lab results reviewed: Yes: I reviewed the patient's lab results. Lab Results 03/20/20 15:22: WBC 9.3, RBC 4.85, Hgb 14.2, Hct 43.0, MCV 88.5, MCH 29.2, MCHC 33.0, RDW 13.5, Plt Count 217, MPV 8.8, Neut % (Auto) 49.9, Lymph % (Auto) 37.2, [place] % (Auto) 7.7, Eos % (Auto) 4.6, Baso % (Auto) 0.6, Neut # (Auto) 4.7, Lymph # (Auto) 3.5, [place] # (Auto) 0.7, Eos # (Auto) 0.4, Baso # (Auto) 0.1 03/20/20 15:22: Sodium 137, Potassium 4.5, Chloride 107, Carbon Dioxide 23, Anion Gap 11.5, BUN 21 H, Creatinine 0.90, Estimated Creat Clear 97, Estimated GFR 84, Est GFR ( Amer) 102, Glucose 105 H, Calcium 9.1, Troponin I < 0.01 Result diagrams: 03/20/20 15:22 03/20/20 15:22 Orders (Tests/Meds): ORDERS Category Date Time Status Troponin I Q3H Lab 03/20/20 18:30 Ordered Troponin I Q3H Lab 03/20/20 21:30 Ordered - Radiology Data #1 Image(s): Chest Preliminary Findings: Normal/NAD - ECG Data Tracing #1 Normal Sinus Rhythm: Yes - KANWAL Score for Non-Stemi Age of Patient: 60-69 years old Heart Rate: 70-89 bpm Systolic Blood Pressure: 140-159 mmHg Serum Creatinine: 0.40-0.79 mg/dl CHF Killip Class: I-No CHF Other Risk Factors: None Non-Stemi Risk Score: 95 Risk Stratification: 1-108 = Low Risk Medical Decision Narrative: I spoke to Dr. Adam about this patient and he agreed to consult on him I spoke to Dr. Anthony for admission. Chest Pain HPI - General Chief Complaint: Chest Pain Stated Complaint: chest pain Time Seen by Provider: 03/20/20 15:11 Mode of Arrival: Ambulatory Source of Information: Patient Limitations: No Limitations Description of Symptoms (Recalled from ER Triage Doc. by RN): Complaint of chest pain with left arm numbness since this morning. - History of Present Illness HPI narrative: 69-year-old gentleman presents the ED with a sudden onset of substernal chest pain. He states the pain started about 2 hours prior to arrival here in the emergency department he stated the pain radiated to the left shoulder and his left arm was numb. He described this pain as a sharp/burning sensation and he states it is very similar to this kind of pain he had when he had an acute UT back in 2001. He states that the crescendo the pain was 7 out of 10 presently his pain is 2 out of 10 and he had substantial relief with Nitropaste applied to his chest. He states movement and stress exacerbate this pain and rest helps alleviate along with nitroglycerin. Patient did have a cardiac catheterization done in 2001 and had 4 subsequent stents placed. 1 month later after he had a 4 stents placed they had to go back and and open up to vessels via balloon method. Since then patient has been following up with Dr. Adam and managing his coronary artery disease. Patient
[2020-03-20 17:07] VITALS: BP 126/84; PULSE 76; RESP 18; TEMP 36.8; O2SAT 95; BMI 36.1
--- NOTE | 2020-03-20 17:20 | PC.NURSE ---
Report called to KATY Sandoval.
[2020-03-20 17:55] VITALS: BP 126/84; PULSE 76; RESP 18; TEMP 36.8; O2SAT 95
[2020-03-20 18:12] LABS: Troponin I < 0.01 ng/ml (0.00-0.034)
[2020-03-20 19:45] VITALS: O2SAT 95
[2020-03-20 20:00] VITALS: BP 127/80; PULSE 62; PULSE 80; RESP 18; TEMP 36.5; O2SAT 95
[2020-03-20 21:47] LABS: Troponin I < 0.01 ng/ml (0.00-0.034)
[2020-03-20 23:30] VITALS: BP 135/74; PULSE 73; RESP 19; O2SAT 96
[2020-03-21] VITALS (16 sets, daily range): BP systolic 103–127; BP diastolic 54–78; PULSE 61–90; RESP 16–18; TEMP 36.6–36.7; O2SAT 92–97; BMI 35.7
--- NOTE | 2020-03-21 | IR_ITS ---
APPROVED REPORT Patient Location: Inpatient Meat Supervisor: CHRISTOPHER Sagastume RT (R) PROCEDURES Left heart catheterization Left ventriculogram Selective coronary angiogram INDICATION Known coronary disease with history of stenting, Risk factors for coronary disease, Acute coronary syndrome Informed consent was obtained prior to the procedure. COMPLICATIONS none Estimated Blood Loss: less than 10 mls TECHNIQUE One percent lidocaine used to anesthetize the right anterior aspect of the wrist. The right radial artery was accessed via the Seldinger technique. A 6 [place] Island[place] sheath was placed in the right radial artery. 2.5 mg of verapamil, 800 mcg of nitroglycerin, 1mg Lidocaine and 5000 U Heparin were given through the arterial sheath. The trap catheter was also used to perform left heart catheterization, left ventriculogram and selective coronary angiogram. At the end of the procedure the sheath was removed good hemostasis was achieved using Traclet band, patient was transferred to the postop holding area in stable condition. ANGIOGRAPHIC RESULTS The left main artery Normal The left anterior descending artery Has proximal 20 to 30% stenosis with mid vessel 10% stenoses. A large first diagonal artery has a mid vessel 30% stenosis. The circumflex artery Is a nondominant vessel and has proximal concentric 30% stenosis followed by a stent in the moderate-sized obtuse marginal artery which has 30% concentric in-stent restenosis The right coronary artery Is a large dominant vessel and has proximal 30% concentric stenosis mid vessel 20 and 30% stenoses and distal 20% stenoses. A 2 mm posterior lateral branch has a proximal concentric 80% stenosis. The posterior descending artery has diffuse 30% stenoses The JEWELL ventriculogram reveals Normal 65% The left ventricular end-diastolic pressure 10 mmHg IMPRESSION Widely patent stent in the circumflex artery Mild cqz-rjsq-jxsgpszs disease throughout the LAD and diagonal artery Severe stenosis and a 2 mm posterior lateral branch off the dominant right coronary artery Normal ejection fraction Normal left ventricular end-diastolic pressure PLAN 1. Strongly favor medical management at this time. If patient develops recalcitrant angina pectoris refractory to medical management only then would I consider stenting the posterior lateral branch. This is a long vessel however it is relatively narrow and medical management should be superior modality 2. Risk factor modification 3. Avoidance of tobacco products Electronically signed by : Kumar Adam, 03/21/2020 09:55:17
--- NOTE | 2020-03-21 03:13 | PC.NURSE ---
Pt is alert and oriented x4. Heart rate regular. NSR on cardiac specialist. Respirations regular and unlabored. tolerated room air well throughout shift. Lung sounds bilaterally clear. No JVD present. No edema noted. Capillary refill of <3 seconds. +2 pulses noted throughout. Hand relationship associate bilaterally equal. Bowel sounds heard in all 4 quadrants. States he had a bowel movement today. Reports of pain 4/10 in his LUE at the beginning of shift. Pt denies any chest pain. Around 11am, pt reported increasing pain of 8/10 in LUE. Vital signs assessed along with radial pulses. 135/74, heartrate 73, oxygen saturation of 96% RA, and RR of 19. Dr. Anthony was contacted and he ordered Tylenol 500mg PO q6hrs PRN to be given and it was administered. Pt tolerated well. on reassessment pt reports pain of 4/10 and is tolerable. Pt notified of cardiology consult. SRNA will help him with shower in the AM and prep him for the consult. Pt resting comfortably in bed. VVS. No concerns at this time. Will continue to monitor.
[2020-03-21 06:19] LABS: Basophils # 0.1 K/mm3 (0-0.2); Basophils % 0.7 % (0.1-2.0); Chloride 109 mmol/L (98-107); Eosinophils # 0.5 K/mm3 (0.0-0.4); Eosinophils % 5.1 % (0.1-12.0); Hematocrit 42.5 % (42.0-52.0); Hemoglobin 13.8 g/dL (14.1-18.0); Lymphocytes % 47.2 % (10-50); Mean Corpuscular HGB Conc 32.5 g/dL (31.8-35.4); Mean Corpuscular Volume 89.3 fl (80-94); Monocytes # 0.8 K/mm3 (0.1-1.0); Monocytes % 7.9 % (1.7-9.3); Neutrophils # 4.2 K/mm3 (1.8-7.8); Neutrophils % 39.1 % (37.0-80.0); Platelet Count 215 K/mm3 (142-424); Red Blood Count 4.76 M/mm3 (4.60-6.20); Red Cell Distribution Width 13.5 % (11.5-17.5); Sodium 138 mmol/L (136-145); White Blood Count 10.6 K/mm3 (4.8-10.8)
[2020-03-21 06:21] LABS: Alanine Aminotransferase 46 U/L (12-78); Aspartate Amino Transferase 43 U/L (17-59); Blood Urea Nitrogen 18 mg/dl (9-20); Creatinine Clearance Estimated 99 mL/min (50-200); Estimated Glomerular Filt Rate 84 ml/min (>60); GFR (African American) 102 ML/MIN (>60)
[2020-03-21 06:22] LABS: Albumin Level 3.6 g/dl (3.5-5.0); Albumin/Globulin Ratio 1.5 (1.1-1.8); Alkaline Phosphatase 85 U/L (38-126); Bilirubin,Total 0.7 mg/dl (0.2-1.3); Carbon Dioxide 24 mmol/L (22.0-30.0); Globulin 2.4 g/dL (1.3-3.2); Glucose 107 mg/dl (74-100)
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
--- NOTE | 2020-03-21 08:01 | P.CONPHA_ITS ---
[facility] Pharmacy VTE Monitoring - Patient Demographics Admission date: 03/20/20 Report Date: 03/21/20 Time: 08:02 Allergies/Adverse Reactions: Patient Allergies albuterol Allergy (Severe, Verified 03/20/20 17:17) Anaphylaxis erythromycin base Allergy (Intermediate, Verified 07/05/18 16:13) I-RASH penicillin G Allergy (Intermediate, Verified 07/05/18 16:13) I-RASH Height: 1.65 m Weight: 97.239 kg Patient Problems: Current Active Problems CAD (coronary artery disease) (Acute) Chest pain (Acute) - VTE Risk Labs: VTE Related Lab Results Hgb 13.8 g/dL (14.1-18.0) L 03/21/20 05:28 Hct 42.5 % (42.0-52.0) 03/21/20 05:28 Plt Count 215 K/mm3 (142-424) 03/21/20 05:28 BUN 18 mg/dl (9-20) 03/21/20 05:28 Creatinine 0.90 mg/dl (0.66-1.25) 03/21/20 05:28 Estimated Creat Clear 99 mL/min (50-200) 03/21/20 05:28 Was VTE Risk Assessment Performed: Yes VTE Score: 7 VTE Risk Level: Moderate Risk Clinical Trial Participant: No - Prophylaxis VTE Prophylaxis Ordered?: Yes Types of VTE Prophylaxis: TEDS Knee High
--- NOTE | 2020-03-21 08:01 | PC.NURSE ---
0.4mg nitro sublingual given per PETRA Xiong; verified with Celine Fitch.
--- NOTE | 2020-03-21 08:25 | CA_ITS ---
APPROVED REPORT EXAM: Comprehensive 2D, Doppler, and color-flow Echocardiogram Chiropractic Physician: Roxana Li RT(R) Ht: 5 ft 4 in Wt: 214lbs BSA: 2.01 BP: 122/74 mmHg Indications: CP, COPD, HTN, hyperlipidemia, CAD, GERD, [place], hx [place], stents, heart cath today with no new stents 2D Dimensions LVOT 2.02 cm (M/F) 1.5-2.5 M-Mode Dimensions RVDd 2.10 cm (0.9-2.6) LVDd 4.84 cm (3.5-5.7) LVDs 3.60 cm (3.5-5.7) IVSd 0.89 cm (0.6-1.1) PWd 0.93 cm (0.6-1.1) EF (Teich) 50.40% FS 25.60% EDV (Teich) 109.60 mL ESV (Teich) 54.40 mL LV Diastology E/A Ratio 0.72 Mitral Valve MV A Velocity 98.00 (40-130 cm/s) Left Ventricle Left atrium is mildly enlarged, left ventricle is normal size, mild concentric left ventricular hypertrophy, visually estimated ejection fraction 50% with no obvious regional wall motion abnormality. Grade 1 diastolic dysfunction seen without tissue Doppler evidence of raise left atrial pressure. Right Ventricle Right atrium and right ventricular normal size and contractility. Aortic Valve Aortic valve is minimally thickened and fibrosed, there is no aortic stenosis or aortic insufficiency. Mitral Valve Mitral valve is minimally thickened, there is no mitral stenosis, there is mild mitral regurgitation. Tricuspid Valve Tricuspid valve is grossly normal, there is mild tricuspid regurgitation. Tricuspid regurgitation jet velocity is inadequate for calculation of the right ventricular systolic pressure. Pulmonic Valve Pulmonic valve is poorly visualized. Great Vessels Aortic root is normal size. Pericardium No significant pericardial effusion noted. Conclusion 1. Technically difficult study because of the patient fact in poor acoustic windows, endocardial surfaces are poorly visualized. 2. Mildly enlarged left atrium, normal left ventricular size, mild concentric left ventricular hypertrophy, visually estimated ejection fraction 50% with no regional wall motion abnormality, grade 1 diastolic dysfunction seen without tissue Doppler evidence of raise left atrial pressure. 3. Mild mitral and tricuspid regurgitation. 4. No significant pericardial effusion noted. Electronically signed by : Sarmad Thomas, 03/21/2020 13:48:02
--- NOTE | 2020-03-21 08:29 | HMH.HP ---
*Admission Date: 03/20/20 *Chief complaint: Chest pain with left arm radiation *History of present illness: 69-year-old white male with history of coronary disease, emphysema with chronic bronchitis and chronic chest pains along with GERD, presented to the emergency department with somewhat of a vague chest pain syndrome that radiated into his left arm. Initial enzymes were negative but because of his history and risk factors he was admitted overnight for rule out [place]. [facility] History I have reviewed the patient's past medical history: Yes Medical History: Reports:: Asthma, Atherosclerotic Heart Disease, Chronic Obstructive Pulmonary Disease (COPD) (He does not have COPD.), Coronary Artery Disease, Hyperlipidemia, Hypertension, Myocardial Infarction Denies:: Cancer, Diabetes Mellitus Type 1, Diabetes Mellitus Type 2, MRSA *Have you ever received a pneumonia vaccine?: Yes *Have you received a flu vaccine this season?: Yes Other Medical History: Reports: Arthritis, Hypothyroidism, Thyroid Disease Other Surgeries: Yes: Cardiac Catheterization, Cholecystectomy, Colonoscopy, EGD, Hernia Repair, Other (PLATE IN HEAD.) Amputation: No Fractures: No - *Social History Educational Level: Completed High School Smoking Status: Never smoker Alcohol Intake: never Alcohol Intake Frequency:: other Substance Use Type: denies use *Occupational Status:: retired Housing: house Household Members: spouse *Travel in the last 8 weeks: None Family Hx:: Cancer Review of Systems - Review of Systems Review of systems:: pertinent systems reviewed and negative unless documented below - *Neurologic Denies fainting, Denies tingling Meds Home Medications Medication Instructions Recorded Confirmed Type Aspirin 81 mg PO DAILY 12/25/17 03/20/20 History Atorvastatin Calcium [Lipitor 80mg 80 mg PO HS 12/25/17 03/20/20 History Tablet] Levothyroxine Sodium 50 mcg PO DAILY 12/25/17 03/20/20 History [Levothyroxine 50mcg (0.05mg) Tab] Pantoprazole Sodium [Protonix 40mg 40 mg PO HS 12/25/17 03/20/20 History tablet] carvediloL [Carvedilol 6.25mg Tab] 6.25 mg PO BID 12/25/17 03/20/20 History buPROPion HCL [Bupropion HCl Sr] 100 mg PO BID 07/06/18 03/20/20 History Levocetirizine Dihydrochloride 5 mg PO HS 03/20/20 03/20/20 History [Xyzal] Allergies Allergy/AdvReac Type Severity Reaction Status Date / Time albuterol Allergy Severe Anaphylaxis Verified 03/20/20 17:17 erythromycin base Allergy Intermediate I-RASH Verified 07/05/18 16:13 penicillin G Allergy Intermediate I-RASH Verified 07/05/18 16:13 Exam Vital signs and Labs for Last 24 Hours: Temp Pulse Resp BP Pulse Ox 97.8 F 76 17 122/74 97 03/21/20 04:00 03/21/20 04:00 03/21/20 04:00 03/21/20 04:00 03/21/20 04:00 Laboratory Results - last 24 hr 03/20/20 15:22: WBC 9.3, RBC 4.85, Hgb 14.2, Hct 43.0, MCV 88.5, MCH 29.2, MCHC 33.0, RDW 13.5, Plt Count 217, MPV 8.8, Neut % (Auto) 49.9, Lymph % (Auto) 37.2, [place] % (Auto) 7.7, Eos % (Auto) 4.6, Baso % (Auto) 0.6, Neut # (Auto) 4.7, Lymph # (Auto) 3.5, [place] # (Auto) 0.7, Eos # (Auto) 0.4, Baso # (Auto) 0.1 03/20/20 15:22: Sodium 137, Potassium 4.5, Chloride 107, Carbon Dioxide 23, Anion Gap 11.5, BUN 21 H, Creatinine 0.90, Estimated Creat Clear 97, Estimated GFR 84, Est GFR ( Amer) 102, Glucose 105 H, Calcium 9.1, Troponin I < 0.01 03/20/20 17:40: Troponin I < 0.01 03/20/20 21:07: Troponin I < 0.01 03/21/20 05:28: WBC 10.6, RBC 4.76, Hgb 13.8 L, Hct 42.5, MCV 89.3, MCH 29.0, MCHC 32.5, RDW 13.5, Plt Count 215, MPV 9.0, Neut % (Auto) 39.1, Lymph % (Auto) 47.2, [place] % (Auto) 7.9, Eos % (Auto) 5.1, Baso % (Auto) 0.7, Neut # (Auto) 4.2, Lymph # (Auto) 5.0 H, [place] # (Auto) 0.8, Eos # (Auto) 0.5 H, Baso # (Auto) 0.1 03/21/20 05:28: Sodium 138, Potassium 4.0, Chloride 109 H, Carbon Dioxide 24, Anion Gap 9.0, BUN 18, Creatinine 0.90, Estimated Creat Clear 99, Estimated GFR 84, Est GFR ( Amer) 102, Glucose 107 H, Calcium 9.0, Total
--- NOTE | 2020-03-21 08:33 | HMH.PHAINT ---
HOME MEDICATION RECONCILIATION COMPLETED USING LIST FROM HOME PHARMACY
--- NOTE | 2020-03-21 09:34 | PC.NURSE ---
0915 PATIENT TAKEN TO [facility]
--- NOTE | 2020-03-21 12:04 | HMH.DCSUM ---
General - General Admission date:: 03/20/20 Discharge date: 03/21/20 HPI HPI: 69-year-old white male with history of coronary disease, emphysema with chronic bronchitis and chronic chest pains along with GERD, presented to the emergency department with somewhat of a vague chest pain syndrome that radiated into his left arm. Initial enzymes were negative but because of his history and risk factors he was admitted overnight for rule out [place]. Hospital Course Hospital Course: Patient was admitted, ruled out for myocardial infarction by enzyme and EKG criteria as noted above. Given his prior history of coronary disease he was taken to catheter lab this morning. Her catheterization showed no further evidence of coronary atherosclerosis progression and no intervention was undertaken. Please see cardiology records for details. As a result patient will be discharged home with GI medication as noted. Followup will be in our office in the next week or 2. Objective Vital signs: Temp Pulse Resp BP Pulse Ox 98.0 F 82 16 127/56 L 95 03/21/20 08:00 03/21/20 08:00 03/21/20 08:00 03/21/20 08:00 03/21/20 08:00 no acute distress - *Routine HEENT Exam Head: Present: normocephalic Eye: Present: EOMI, PERRL ENT: Present: mucous membranes moist - *Routine Neck Exam Present: supple - *Routine Respiratory Exam Present: CTA bilaterally - *Routine Cardiovascular Exam Present: RRR - *Routine Abdominal Exam Present: soft, normoactive bowel sounds. Absent: tenderness - *Routine Extremities Exam Absent: cyanosis, clubbing, edema - *Routine Skin Exam Present: warm. Absent: rash - Detailed Eye Exam Eyelids: Bilateral normal inspection Results Labs on day of discharge: Labs from last 24 hours 03/21/20 03/21/20 03/20/20 05:28 05:28 21:07 WBC 10.6 RBC 4.76 Hgb 13.8 L Hct 42.5 MCV 89.3 MCH 29.0 MCHC 32.5 RDW 13.5 Plt Count 215 MPV 9.0 Neut % (Auto) 39.1 Lymph % (Auto) 47.2 [place] % (Auto) 7.9 Eos % (Auto) 5.1 Baso % (Auto) 0.7 Neut # (Auto) 4.2 Lymph # (Auto) 5.0 H [place] # (Auto) 0.8 Eos # (Auto) 0.5 H Baso # (Auto) 0.1 Sodium 138 Potassium 4.0 Chloride 109 H Carbon Dioxide 24 Anion Gap 9.0 BUN 18 Creatinine 0.90 Estimated Creat Clear 99 Estimated GFR 84 Est GFR ( Amer) 102 Glucose 107 H Calcium 9.0 Total Bilirubin 0.7 AST 43 ALT 46 Alkaline Phosphatase 85 Troponin I < 0.01 Total Protein 6.0 L Albumin 3.6 Globulin 2.4 Albumin/Globulin Ratio 1.5 03/20/20 03/20/20 03/20/20 17:40 15:22 15:22 WBC 9.3 RBC 4.85 Hgb 14.2 Hct 43.0 MCV 88.5 MCH 29.2 MCHC 33.0 RDW 13.5 Plt Count 217 MPV 8.8 Neut % (Auto) 49.9 Lymph % (Auto) 37.2 [place] % (Auto) 7.7 Eos % (Auto) 4.6 Baso % (Auto) 0.6 Neut # (Auto) 4.7 Lymph # (Auto) 3.5 [place] # (Auto) 0.7 Eos # (Auto) 0.4 Baso # (Auto) 0.1 Sodium 137 Potassium 4.5 Chloride 107 Carbon Dioxide 23 Anion Gap 11.5 BUN 21 H Creatinine 0.90 Estimated Creat Clear 97 Estimated GFR 84 Est GFR ( Amer) 102 Glucose 105 H Calcium 9.1 Total Bilirubin AST ALT Alkaline Phosphatase Troponin I < 0.01 < 0.01 Total Protein Albumin Globulin Albumin/Globulin Ratio DS: Diagnosis - Discharge Diagnosis (1) CAD (coronary artery disease) Status: Chronic (2) Chest pain Status: Resolved (3) COPD (chronic obstructive pulmonary disease) Status: Chronic Discharge Plan - Patient Discharge Instructions ACTIVITY: Continue current activity DIET: continue same diet Patient Instructions: Coronary Artery Disease, DI for Chest Pain - Follow up Plan Follow up with: Kumar Adam MD [Staff Physician] - 04/04/20 10:30 am Jayme Reardon MD [Primary Care Provider] - 03/24/20 Dis
--- NOTE | 2020-03-21 14:57 | HMH.PHAINT ---
DISCHARGE COUNSELING COMPLETED.
== END 2020-03-21 16:52 | disposition home or self-care (01) ==
LOC: ER 16:06 → 2ND 17:13
PROVIDERS: Internal Medicine; Admitting Provider Internal Medicine Adolescent Medicine; Emergency Provider Family Medicine; PCP Internal Medicine Adolescent Medicine; Visit Provider Internal Medicine Adolescent Medicine
DX: I25.10 Atherosclerotic heart disease of native coronary artery without angina pectoris (principal); Z95.5 Presence of coronary angioplasty implant and graft; I25.2 Old myocardial infarction; T82.855A Stenosis of coronary artery stent, initial encounter; E03.9 Hypothyroidism, unspecified; J44.9 Chronic obstructive pulmonary disease, unspecified; Z79.899 Other long term (current) drug therapy
CPT/HCPCS: 36415; 71046; 80048; 80053; 84484; 85025; 93005; 93306; 93458; 99152; 99283; 99284; C1725; C1769; G0378; J1644; Q9967

== ENCOUNTER → 2020-04-24 07:39 | Outpatient (CLI) | payer MEDICARE, OTHER, SELFPAY ==
[2020-04-24 09:06] LABS: Chloride 112 mmol/L (98-107)
[2020-04-24 09:07] LABS: Potassium 3.9 mmoL/L (3.5-5.1); Sodium 139 mmol/L (136-145)
[2020-04-24 09:10] LABS: Anion Gap 9.9 mEq/L (5-15); Blood Urea Nitrogen 24 mg/dl (9-20); Calcium 8.6 mg/dl (8.4-10.2); Carbon Dioxide 21 mmol/L (22.0-30.0); Estimated Glomerular Filt Rate 84 ml/min (>60); GFR (African American) 102 ML/MIN (>60); Glucose 131 mg/dl (74-100)
== END ==
PROVIDERS: Visit Provider Internal Medicine Cardiovascular Disease
DX: E78.5 Hyperlipidemia, unspecified (principal); I10 Essential (primary) hypertension; I25.10 Atherosclerotic heart disease of native coronary artery without angina pectoris
CPT/HCPCS: 36415; 80048

== ENCOUNTER → 2020-09-30 09:57 | Outpatient (CLI) | payer MEDICARE, OTHER, SELFPAY ==
--- NOTE | 2020-09-30 10:04 | XR_ITS ---
PROCEDURE: XR SHOULDER RT MIN 2V CLINICAL INDICATION: ACUTE PAIN OF RT SHOULDER COMPARISON: No exams were available for comparison FINDINGS: No fracture or dislocation. No lytic or blastic change. There is normal mineralization. There is mild subacromial stenosis and there are minimal osteoarthritic changes of glenohumeral joint. Other findings:None. IMPRESSION: Mild degenerative changes with mild subacromial stenosis Dictated by: Goyo Herrera MD 09/30/2020 15:55 Goyo Herrera MD in [place] 09/30/2020 15:55
== END ==
PROVIDERS: PCP Internal Medicine Adolescent Medicine; Visit Provider Internal Medicine Adolescent Medicine
DX: M25.511 Pain in right shoulder (principal)
CPT/HCPCS: 73030

== ENCOUNTER → 2020-12-27 12:24 | Outpatient (CLI) | payer MEDICARE, OTHER, SELFPAY | PROVIDERS: PCP Internal Medicine Adolescent Medicine; Visit Provider Internal Medicine Adolescent Medicine | DX: U07.1 COVID-19; Z20.822 Contact with and (suspected) exposure to COVID-19 | CPT/HCPCS: U0003 ==

== ENCOUNTER 2020-12-30 07:36 | Outpatient (CLI) | payer MEDICARE, OTHER, SELFPAY | END 2020-12-30 10:02 | disposition home or self-care (01) | PROVIDERS: PCP Internal Medicine Adolescent Medicine; Visit Provider Internal Medicine Adolescent Medicine | DX: U07.1 COVID-19 (principal) | CPT/HCPCS: 96365 ==

== ENCOUNTER → 2021-01-12 09:12 | Outpatient (CLI) | payer MEDICARE, OTHER, SELFPAY ==
[2021-01-12 09:38] LABS: Basophils # 0.1 K/mm3 (0-0.2); Basophils % 0.6 % (0.1-2.0); Eosinophils # 0.4 K/mm3 (0.0-0.4); Hemoglobin 13.4 g/dL (14.1-18.0); Lymphocytes # 4.1 K/mm3 (0.7-4.5); Lymphocytes % 41.2 % (10-50); Mean Corpuscular HGB Conc 32.7 g/dL (31.8-35.4); Mean Corpuscular Hemoglobin 29.9 pg (27.0-31.2); Mean Corpuscular Volume 91.3 fl (80-94); Mean Platelet Volume 9.3 fl (7.4-10.4); Monocytes # 0.7 K/mm3 (0.1-1.0); Monocytes % 6.8 % (1.7-9.3); Neutrophils # 4.7 K/mm3 (1.8-7.8); Neutrophils % 47.3 % (37.0-80.0); Platelet Count 194 K/mm3 (142-424); Red Blood Count 4.49 M/mm3 (4.60-6.20); Red Cell Distribution Width 13.5 % (11.5-17.5); White Blood Count 9.9 K/mm3 (4.8-10.8)
[2021-01-12 09:54] LABS: Chloride 111 mmol/L (98-107); Potassium 4.5 mmoL/L (3.5-5.1); Sodium 143 mmol/L (136-145)
[2021-01-12 09:56] LABS: Blood Urea Nitrogen 16 mg/dl (9-20); Estimated Glomerular Filt Rate 84 ml/min (>60); GFR (African American) 102 ML/MIN (>60)
[2021-01-12 09:57] LABS: Alanine Aminotransferase 41 U/L (12-78); Alkaline Phosphatase 110 U/L (38-126); Anion Gap 11.5 mEq/L (5-15); Aspartate Amino Transferase 36 U/L (17-59); Bilirubin,Total 0.6 mg/dl (0.2-1.3); Carbon Dioxide 25 mmol/L (22.0-30.0); Cholesterol 113 mg/dl (140-200); Glucose 115 mg/dl (74-100); Triglycerides 137 mg/dl (30-150); VLDL Cholesterol 27 mg/dL (0-40)
[2021-01-12 09:58] LABS: Chol/HDL Ratio 3.4 (1-3.5); HDL Cholesterol 33 mg/dl (40-60)
[2021-01-12 10:08] LABS: Direct LDL Cholesterol 60.07 mg/dL (100-129)
== END ==
PROVIDERS: Visit Provider Internal Medicine Adolescent Medicine
DX: I25.10 Atherosclerotic heart disease of native coronary artery without angina pectoris (principal); I10 Essential (primary) hypertension; E03.9 Hypothyroidism, unspecified
CPT/HCPCS: 36415; 80053; 80061; 84443; 85025

== ENCOUNTER → 2021-11-03 12:19 | Outpatient (CLI) | payer MEDICARE, OTHER, SELFPAY | PROVIDERS: PCP Internal Medicine Adolescent Medicine; Visit Provider Internal Medicine Cardiovascular Disease | DX: G47.33 Obstructive sleep apnea (adult) (pediatric) (principal); R06.83 Snoring; R40.0 Somnolence; I10 Essential (primary) hypertension | CPT/HCPCS: G0399 ==

== ENCOUNTER → 2022-10-27 13:39 | Outpatient (CLI) | payer MEDICARE, SELFPAY ==
[2022-10-27 14:39] LABS: Basophils # 0.1 K/mm3 (0-0.2); Basophils % 0.8 % (0.1-2.0); Eosinophils # 0.4 K/mm3 (0.0-0.4); Eosinophils % 4.6 % (0.1-12.0); Hematocrit 43.4 % (42.0-52.0); Hemoglobin 14.1 g/dL (14.1-18.0); Lymphocytes # 4.2 K/mm3 (0.7-4.5); Lymphocytes % 45.5 % (10-50); Mean Corpuscular HGB Conc 32.6 g/dL (31.8-35.4); Mean Corpuscular Hemoglobin 29.5 pg (27.0-31.2); Mean Corpuscular Volume 90.5 fl (80-94); Mean Platelet Volume 9.9 fl (7.4-10.4); Monocytes # 0.6 K/mm3 (0.1-1.0); Monocytes % 6.5 % (1.7-9.3); Neutrophils % 42.6 % (37.0-80.0); Platelet Count 210 K/mm3 (142-424); Red Blood Count 4.79 M/mm3 (4.60-6.20); Red Cell Distribution Width 13.2 % (11.5-17.5); White Blood Count 9.3 K/mm3 (4.8-10.8)
[2022-10-27 15:47] LABS: Alanine Aminotransferase 32 U/L (12-78); Albumin Level 4.2 g/dl (3.5-5.0); Alkaline Phosphatase 114 U/L (38-126); Anion Gap 13.1 mEq/L (5-15); Aspartate Amino Transferase 33 U/L (17-59); Bilirubin,Direct 0.1 mg/dl (0.0-0.4); Bilirubin,Indirect 0.3 mg/dL (0.0-0.9); Bilirubin,Total 0.4 mg/dl (0.2-1.3); Bilirubin,Unconjugated 0.4 mg/dL (0.0-1.1); Blood Urea Nitrogen 19 mg/dl (9-20); Calcium 9.4 mg/dl (8.4-10.2); Carbon Dioxide 27 mmol/L (22.0-30.0); Chloride 108 mmol/L (98-107); Chol/HDL Ratio 4.1 (1-3.5); Cholesterol 115 mg/dl (140-200); Estimated Glomerular Filt Rate 74 ml/min (>60); GFR (African American) 90 ML/MIN (>60); Glucose 99 mg/dl (74-100); HDL Cholesterol 28 mg/dl (40-60); Magnesium 1.8 mg/dl (1.6-2.3); Potassium 4.1 mmoL/L (3.5-5.1); Sodium 144 mmol/L (136-145); Total Protein,Serum 6.3 g/dl (6.3-8.2); Triglycerides 222 mg/dl (30-150); VLDL Cholesterol 44 mg/dL (0-40)
[2022-10-27 15:57] LABS: Direct LDL Cholesterol 63.41 mg/dL (100-129)
[2022-10-27 16:18] LABS: Thyroid Stimulating Hormone 1.24 uIU/mL (0.465-4.68)
== END ==
PROVIDERS: PCP Internal Medicine Adolescent Medicine; Visit Provider Nurse Practitioner
DX: E78.2 Mixed hyperlipidemia (principal); I10 Essential (primary) hypertension; I25.118 Atherosclerotic heart disease of native coronary artery with other forms of angina pectoris
CPT/HCPCS: 36415; 80048; 80061; 80076; 83735; 84439; 84443; 85025

== ENCOUNTER 2024-01-31 17:23 | Outpatient (CLI) | payer MEDICARE, SELFPAY ==
--- NOTE | 2024-01-31 17:30 | XR_ITS ---
PROCEDURE INFORMATION: Exam: XR Chest Exam date and time: 01/31/2024 5:32 PM Age: 73 years old Clinical indication: Other: Acute bronchopneumonia TECHNIQUE: Imaging protocol: Radiologic exam of the chest. Views: 2 views. COMPARISON: CR XR CHEST 2V 03/20/2020 3:42 PM FINDINGS: Lungs: No evidence of acute pulmonary disease or infiltrates Pleural spaces: No large effusion or pneumothorax. Heart/Mediastinum: Stable cardiac and mediastinal contours. Vasculature: There are calcifications of the aortic arch. Diaphragm: There is elevation of the right hemidiaphragm. Bones/joints: No evidence of acute osseous abnormalities within the visualized portions of the thoracic spine and ribs. Osseous structures appear appropriate for patient age. There are degenerative changes of the thoracic spine. Other findings: The patient is rotated on the examination which somewhat alters the expected anatomic relationships and limits the study. IMPRESSION: No dense parenchymal consolidation, pleural effusion, or pneumothorax.
== END 2024-01-31 23:59 ==
LOC: RAD 17:25
PROVIDERS: PCP Internal Medicine Adolescent Medicine; Visit Provider Internal Medicine Adolescent Medicine
DX: J18.0 Bronchopneumonia, unspecified organism (principal)
CPT/HCPCS: 71046

== ENCOUNTER 2024-09-10 12:07 | Outpatient (CLI) | payer MEDICARE, SELFPAY ==
--- NOTE | 2024-09-10 12:14 | XR_ITS ---
PROCEDURE INFORMATION: Exam: XR Right Hip Exam date and time: 09/10/2024 12:41 PM Age: 73 years old Clinical indication: Hip pain; Right hip; Additional info: RT buttock pain TECHNIQUE: Imaging protocol: Radiologic exam of the right hip. Views: 2 or 3 views hip with pelvis when performed. COMPARISON: No relevant prior studies available. FINDINGS: Bones/joints: Mild degenerative changes in both hips. There is no evidence of acute fracture.There is no evidence of malalignment or dislocation. Soft tissues: Unremarkable. IMPRESSION: There is no evidence of acute fracture.There is no evidence of malalignment or dislocation.
--- NOTE | 2024-09-10 12:14 | XR_ITS ---
PROCEDURE INFORMATION: Exam: XR Left Hip Exam date and time: 09/10/2024 12:41 PM Age: 73 years old Clinical indication: Hip pain; Left hip; Additional info: Lt buttock pain TECHNIQUE: Imaging protocol: Radiologic exam of the left hip. Views: 2 or 3 views hip with pelvis when performed. COMPARISON: No relevant prior studies available. FINDINGS: Bones/joints: Degenerative changes in the left hip. There is no evidence of acute fracture.There is no evidence of malalignment or dislocation. Soft tissues: Unremarkable. IMPRESSION: There is no evidence of acute fracture.There is no evidence of malalignment or dislocation.
== END 2024-09-10 23:59 | disposition home or self-care (01) ==
LOC: RAD 12:10
PROVIDERS: PCP Internal Medicine Adolescent Medicine; Visit Provider Internal Medicine Adolescent Medicine
DX: M25.551 Pain in right hip (principal); M25.552 Pain in left hip; M79.18 Myalgia, other site
CPT/HCPCS: 73502

== ENCOUNTER 2025-11-05 13:06 | Outpatient (CLI) | payer MEDICARE, SELFPAY ==
--- OUTSIDE RECORDS SUMMARY | 2025-11-05 13:13 | XMS_ITS | Clinical Summary ---
Author Organization Healthcare Address [address] [place] [address] Care Team Providers Care Kettle Chipper Name Role Phone Georges Chacon MD Primary Care Provider [phone] Immunizations Immunization Administration Dates Next Due Influenza, seasonal, injectable 08/07/2015,08/07 Pneumococcal Conjugate PCV 13 05/30/2015 Pneumococcal Polysaccharide PPV23 11/07/2014, Social History Tobacco Use Types Packs/Day Years Used Date Smoking Tobacco: Never Alcohol Use Standard Drinks/Week Comments No 0 (1 standard drink = 0.6 oz pur e alcohol) Sex and Gender Information Value Date Recorded Sex Assigned at Not on file Legal Sex Male 6:24 PM EDT Gender Identity Not on file Sexual Orientation Not on file Last Filed Vital Signs Vital Sign Reading Time Taken Comments Blood Pressure 141/78 02/13/2019 8:55 AM EDT Pulse 74 02/13/2019 8:55 AM EDT Temperature 36.7 C (98.1 F) 02/13/2019 8:55 AM EDT Respiratory Rate 16 02/13/2019 8:55 AM EDT Oxygen Saturation - - Inhaled Oxygen Concentration - - Weight 98.9 kg (217 lb 15.9 oz) 02/13/2019 8:55 AM EDT Height 165.1 cm (5' 5 ) 02/13/2019 8:55 AM EDT Body Mass Index 36.28 02/13/2019 8:55 AM EDT Plan of Treatment Not on file Care Teams Kettle Chipper Relationship Specialty Start Date End Date Georges Chacon MD [id number] PCP - General 03/20/21
--- NOTE | 2025-11-05 13:15 | XR_ITS ---
FINAL REPORT CLINICAL HISTORY: ACUTE BRONCHOPNEUMONIA COMPARISON: 01/31/2024 FINDINGS: PA and lateral views of the chest were obtained. The cardiac and mediastinal silhouettes are within normal limits. The lungs are clear. There is no pleural effusion or pneumothorax. No acute osseous abnormality is identified. IMPRESSION: No radiographic evidence of acute cardiac or pulmonary disease. Reviewed, Interpreted and Dictated by Samara Reed MD Transcribed by Stephanie Cardona Authenticated and [facility]
[2025-11-05 14:08] LABS: Hematocrit 38.7 % (42.0-52.0); Hemoglobin 13.0 g/dL (14.1-18.0); Immature Granulocytes % 0.4 %; Mean Corpuscular HGB Conc 33.6 g/dL (31.8-35.4); Mean Corpuscular Hemoglobin 30.4 pg (27.0-31.2); Mean Corpuscular Volume 90.6 fl (80-94); Nucleated Red Blood Cells % 0 %; Platelet Count 172 K/mm3 (142-424); Red Blood Count 4.27 M/mm3 (4.60-6.20); Red Cell Distribution Width-SD 42.3 fL; White Blood Count 9.0 K/mm3 (4.8-10.8)
[2025-11-05 14:49] LABS: Alanine Aminotransferase 34 U/L (12-78); Albumin Level 4.5 g/dl (3.5-5.0); Albumin/Globulin Ratio 2.3 (1.1-1.8); Alkaline Phosphatase 120 U/L (38-126); Anion Gap 10.9 mEq/L (5-15); Aspartate Amino Transferase 35 U/L (17-59); Bilirubin,Total 0.7 mg/dl (0.2-1.3); Blood Urea Nitrogen 27 mg/dl (9-20); Calcium 9.1 mg/dl (8.4-10.2); Carbon Dioxide 26 mmol/L (22.0-30.0); Chloride 107 mmol/L (98-107); Creatinine,Serum 1.10 mg/dl (0.66-1.25); Estimated Glomerular Filt Rate 66 ml/min (>60); GFR (African American) 80 ML/MIN (>60); Globulin 2.0 g/dL (1.3-3.2); Glucose 101 mg/dl (74-100); Potassium 4.9 mmoL/L (3.5-5.1); Sodium 139 mmol/L (136-145); Total Protein,Serum 6.5 g/dl (6.3-8.2)
== END 2025-11-05 23:59 | disposition home or self-care (01) ==
LOC: LAB 13:11
PROVIDERS: PCP Internal Medicine Adolescent Medicine; Visit Provider Internal Medicine Adolescent Medicine
DX: J18.0 Bronchopneumonia, unspecified organism (principal)
CPT/HCPCS: 36415; 71046; 80053; 85025; 87040